=== PATIENT | male | born 1950 | race Caucasian/White ===

== ENCOUNTER 2017-04-17 19:50 | Inpatient (IN) | payer OTHER ==
[2017-04-17] MEDS ORDERED: NS 1,000 ML IV ONE (20:05)
[2017-04-17 20:53] LABS: % IMMATURE GRANULYOCYTES 0.4 % (0.0-1.1); ABSOLUTE IMMATURE GRANULOCYTES 0.02 10^3/uL (0.00-0.10); ADD DIFF? NO; ADD MORPH? NO; ADD SCAN? NO; ATYPICAL LYMPHOCYTE FLAG 0 (0-99); FRAGMENT RBC FLAG 0 (0-99); HEMOGLOBIN 16.7 g/dL (13.7-17.5); LEFT SHIFT FLG 0 (0-99); LIPEMIA HEMOLYSIS FLAG 90 (0-99); MEAN CELL HEMOGLOBIN 33.9 pg (27.9-34.1); MEAN CELL HEMOGLOBIN CONCENTR. 37.1 g/dL (32.4-36.7); MEAN CELL VOLUME 91.3 fL (81.5-99.8); MEAN PLATELET VOLUME 9.1 fL (8.7-11.7); PLATELET CLUMPS FLAG 0 (0-99); PLATELET COUNT 72 10^3/uL (150-400); RED BLOOD CELL COUNT 4.93 10^6/uL (4.40-6.38)
[2017-04-17 21:10] LABS: ALANINE AMINOTRANSFERASE 116 IU/L (21-72); ALBUMIN 3.9 g/dL (3.5-5.0); ALKALINE PHOSPHATASE 200 IU/L (38-126); ANION GAP 20 mEq/L (8-16); ASPARTATE AMINOTRANSFERASE 206 IU/L (17-59); BILIRUBIN,TOTAL 4.9 mg/dL (0.1-1.4); BILIRUBIN-CONJUGATED 3.2 mg/dL (0.0-0.5); BILIRUBIN-UNCONJUGATED 1.7 mg/dL (0.0-1.1); CALCIUM 8.5 mg/dL (8.5-10.4); CARBON DIOXIDE 20 mEq/l (22-31); CHLORIDE 98 mEq/L (97-110); CREATININE 0.6 mg/dL (0.7-1.3); GLOMERULAR FILTRATION RATE > 60; GLUCOSE 90 mg/dL (70-100); SODIUM 138 mEq/L (134-144); TOTAL PROTEIN 6.8 g/dL (6.3-8.2)
[2017-04-17] MEDS ORDERED: LORazepam 2 MG/ML INJ ONE (21:13)
[2017-04-17] MEDS ORDERED: LORazepam 2 MG/ML INJ IVP ONE ×2 (21:14→22:20)
--- NOTE | 2017-04-17 21:25 | EDPHY ---
General Time Seen by Provider: 04/17/17 20:05 - History Smoking Status: Light smoker - Objective Vital Signs: Initial Vital Signs Temperature (C) 37.1 C 04/17/17 19:55 Heart Rate 83 04/17/17 19:55 Respiratory Rate 20 04/17/17 19:55 Blood Pressure 181/90 H 04/17/17 19:55 O2 Sat (%) 95 04/17/17 19:55 O2 Delivery Mode Room Air Allergies/Adverse Reactions: Penicillins Allergy (Intermediate, Verified 04/17/17 19:54) Hives Home Medications: Medication Instructions Recorded clonIDINE [Catapres (*)] 0.05 mg PO BID 04/28/15 levOFLOXACIN [levAQUIN (*)] 750 mg PO DAILY #5 tab 04/30/15 oxyCODONE/APAP 5/325 [Percocet 1 - 2 tab PO Q6H PRN #10 tab 04/30/15 5/325 (*)] Gabapentin [Neurontin 100 MG (*)] 100 mg PO DAILY 05/02/15 Multivitamins [Multivitamin (*)] 1 each PO DAILY 05/02/15 traZODone [traZODONE 50MG (*)] 100 mg PO HS 05/02/15 Laboratory Results: Laboratory Results 04/17/17 20:34 04/17/17 04/17/17 04/17/17 20:34 20:34 20:34 WBC 4.59 10^3/uL 10^3/uL (3.80-9.50) RBC 4.93 10^6/uL 10^6/uL (4.40-6.38) Hgb 16.7 g/dL g/dL (13.7-17.5) Hct 45.0 % % (40.0-51.0) MCV 91.3 fL fL (81.5-99.8) MCH 33.9 pg pg (27.9-34.1) MCHC 37.1 g/dL H g/dL (32.4-36.7) RDW 14.0 % % (11.5-15.2) Plt Count 72 10^3/uL L 10^3/uL (150-400) MPV 9.1 fL fL (8.7-11.7) Neut % (Auto) 64.9 % % (39.3-74.2) Lymph % (Auto) 23.5 % % (15.0-45.0) [place] % (Auto) 9.6 % % (4.5-13.0) Eos % (Auto) 0.9 % % (0.6-7.6) Baso % (Auto) 0.7 % % (0.3-1.7) Nucleat RBC Rel Count 0.0 % % (0.0-0.2) Absolute Neuts (auto) 2.98 10^3/uL 10^3/uL (1.70-6.50) Absolute Lymphs (auto) 1.08 10^3/uL 10^3/uL (1.00-3.00) Absolute Monos (auto) 0.44 10^3/uL 10^3/uL (0.30-0.80) Absolute Eos (auto) 0.04 10^3/uL 10^3/uL (0.03-0.40) Absolute Basos (auto) 0.03 10^3/uL 10^3/uL (0.02-0.10) Absolute Nucleated RBC 0.00 10^3/uL 10^3/uL (0-0.01) Immature Gran % 0.4 % % (0.0-1.1) Immature Gran # 0.02 10^3/uL 10^3/uL (0.00-0.10) Sodium Pending Potassium Pending Chloride Pending Carbon Dioxide Pending Anion Gap Pending BUN Pending Creatinine Pending Estimated GFR Pending Glucose Pending Calcium Pending Total Bilirubin Pending Conjugated Bilirubin Pending Unconjugated Bilirubin Pending AST Pending ALT Pending Alkaline Phosphatase Pending Total Protein Pending Albumin Pending Lipase Pending Malaria Smear Pending Malaria Sm Path Review Pending Medications Given: Discontinued Medications Sodium Chloride (Ns) 1,000 mls @ 0 mls/hr IV EDNOW ONE; Wide Open PRN Reason: Protocol Stop: 04/17/17 20:06 Last Admin: 04/17/17 20:37 Dose: 1,000 mls Departure - Departure Referrals: Bucky Cotto DO [Primary Care Provider] - As per Instructions
--- NOTE | 2017-04-17 21:29 | EDPHY ---
H & P Stated Complaint: general weakness, no appetite, vomiting off & on x 2 months, confused Time Seen by Provider: 04/17/17 20:05 HPI/ROS: CHIEF COMPLAINT: Generalized weakness, loss of appetite, occasional vomiting HISTORY OF PRESENT ILLNESS: The patient presents the ED with several months of generalized weakness, loss of appetite and occasional vomiting. The patient is concerned that his symptoms may be related to a 7-10 day trip to [place] he made in December. The patient reportedly was on malaria medications at that point time. The patient denies any insect bites or exposures. The patient states he has not seen a primary care provider in over 1 year. The patient does endorse drinking 2-3 drinks a day. The patient denies any hematemesis, melena or hematochezia. The patient denies any complaints of fever, cough, congestion or rash. REVIEW OF SYSTEMS: A comprehensive 10 point review of systems is otherwise negative aside from elements mentioned in the history of present illness. Source: Patient Exam Limitations: No limitations - Personal History Current Tetanus Diphtheria and Acellular Pertussis (TDAP): Unsure - Medical/Surgical History Hx Asthma: No Hx Chronic Respiratory Disease: No Hx Diabetes: No Hx Cardiac Disease: No Hx Renal Disease: No Hx Cirrhosis: No Hx Alcoholism: Yes Hx HIV/AIDS: No Hx Splenectomy or Spleen Trauma: No Other PMH: HTN - Social History Smoking Status: Light smoker - Physical Exam Exam: General Appearance: Alert, no distress, slightly tremulous, alcohol on breath Eyes: Pupils equal and round no pallor or injection ENT, Mouth: Mucous membranes moist Respiratory: There are no retractions, lungs are clear to auscultation Cardiovascular: Regular rate and rhythm Gastrointestinal: Minimal epigastric tenderness to palpation Neurological: A&O, normal motor function, normal sensory exam, normal cranial nerves Skin: Warm and dry, no rashes Musculoskeletal: Neck is supple nontender Extremities: symmetrical, full range of motion Constitutional: Initial Vital Signs Temperature (C) 37.1 C 04/17/17 19:55 Heart Rate 83 04/17/17 19:55 Respiratory Rate 20 04/17/17 19:55 Blood Pressure 181/90 H 04/17/17 19:55 O2 Sat (%) 95 04/17/17 19:55 O2 Delivery Mode Room Air Allergies/Adverse Reactions: Penicillins Allergy (Intermediate, Verified 04/17/17 19:54) Hives Home Medications: Medication Instructions Recorded clonIDINE [Catapres (*)] 0.05 mg PO BID 04/28/15 levOFLOXACIN [levAQUIN (*)] 750 mg PO DAILY #5 tab 04/30/15 oxyCODONE/APAP 5/325 [Percocet 1 - 2 tab PO Q6H PRN #10 tab 04/30/15 5/325 (*)] Gabapentin [Neurontin 100 MG (*)] 100 mg PO DAILY 05/02/15 Multivitamins [Multivitamin (*)] 1 each PO DAILY 05/02/15 traZODone [traZODONE 50MG (*)] 100 mg PO HS 05/02/15 Medical Decision Making ED Course/Re-evaluation: The patient presents to the ED with fatigue, poor appetite, lethargy which is worsened over the past several months. The patient is noted to have elevated liver function test. The patient reports he drinks 2-3 drinks today but certainly seems to be exhibiting symptoms consistent with alcohol withdrawal. The patient received a total of 2 mg of IV Ativan. The patient continues to be tremulous and slightly diaphoretic on my examination. The patient did have a remote history of travel to [place]. A malaria prep has been sent in addition to a hepatitis panel. I do feel the patient will require admission to the hospital this evening for observation and further workup of his abnormal liver function test which are certainly likely to be elevated as a result of his under reported alcohol use. Consultation was made with the hospitalist service. In reviewing the patient's past medical records he has had admissions to the hospital in 2013 for alcohol withdrawal. He was also admitted in 2014 for left upper quadrant pain. He was evaluated by Gastroenterology at that point time. Consultation was made with Dr. Quevedo from the hospitalist service who will admit the patient. Differential Diagnosis: Differential diagnosis considered includes alcohol withdrawal, hepatitis, critical anemia, malaria, dehydration, metabolic abnormality, renal failure - Data Points Laboratory Results: Laboratory Results 04/17/17 20:34 04/17/17 20:34 04/17/17 04/17/17 04/17/17 20:34 20:34 20:34 WBC 4.59 10^3/uL 10^3/uL (3.80-9.50) RBC 4.93 10^6/uL 10^6/uL (4.40-6.38) Hgb 16.7 g/dL g/dL (13.7-17.5) Hct 45.0 % % (40.0-51.0) MCV 91.3 fL fL (81.5-99.8) MCH 33.9 pg pg (27.9-34.1) MCHC 37.1 g/dL H g/dL (32.4-36.7) RDW 14.0 % % (11.5-15.2) Plt Count 72 10^3/uL L 10^3/uL (150-400) MPV 9.1 fL fL (8.7-11.7) Neut % (Auto) 64.9 % % (39.3-74.2) Lymph % (Auto) 23.5 % % (15.0-45.0) [place] % (Auto) 9.6 % % (4.5-13.0) Eos % (Auto) 0.9 % % (0.6-7.6) Baso % (Auto) 0.7 % % (0.3-1.7) Nucleat RBC Rel Count 0.0 % % (0.0-0.2) Absolute Neuts (auto) 2.98 10^3/uL 10^3/uL (1.70-6.50) Absolute Lymphs (auto) 1.08 10^3/uL 10^3/uL (1.00-3.00) Absolute Monos (auto) 0.44 10^3/uL 10^3/uL (0.30-0.80) Absolute Eos (auto) 0.04 10^3/uL 10^3/uL (0.03-0.40) Absolute Basos (auto) 0.03 10^3/uL 10^3/uL (0.02-0.10) Absolute Nucleated RBC 0.00 10^3/uL 10^3/uL (0-0.01) Immature Gran % 0.4 % % (0.0-1.1) Immature Gran # 0.02 10^3/uL 10^3/uL (0.00-0.10) Sodium 138 mEq/L mEq/L (134-144) Potassium 3.0 mEq/L L mEq/L (3.5-5.2) Chloride 98 mEq/L mEq/L (97-110) Carbon Dioxide 20 mEq/l L mEq/l (22-31) Anion Gap 20 mEq/L H mEq/L (8-16) BUN 8 mg/dL mg/dL (7-23) Creatinine 0.6 mg/dL L mg/dL (0.7-1.3) Estimated GFR > 60 Glucose 90 mg/dL mg/dL (70-100) Calcium 8.5 mg/dL mg/dL (8.5-10.4) Total Bilirubin 4.9 mg/dL H mg/dL (0.1-1.4) Conjugated Bilirubin 3.2 mg/dL H mg/dL (0.0-0.5) Unconjugated Bilirubin 1.7 mg/dL H mg/dL (0.0-1.1) AST 206 IU/L H IU/L (17-59) ALT 116 IU/L H IU/L (21-72) Alkaline Phosphatase 200 IU/L H IU/L (38-126) Total Protein 6.8 g/dL g/dL (6.3-8.2) Albumin 3.9 g/dL g/dL (3.5-5.0) Lipase 61 IU/L IU/L (23-300) Malaria Smear Pending Malaria Sm Path Review Pending Medications Given: Discontinued Medications Sodium Chloride (Ns) 1,000 mls @ 0 mls/hr IV EDNOW ONE; Wide Open PRN Reason: Protocol Stop: 04/17/17 20:06 Last Admin: 04/17/17 20:37 Dose: 1,000 mls Lorazepam (Ativan Injection) 1 mg IVP EDNOW ONE Stop: 04/17/17 21:15 Last Admin: 04/17/17 21:15 Dose: 1 mg Lorazepam (Ativan Injection) 1 mg IVP EDNOW ONE Stop: 04/17/17 22:21 Last Admin: 04/17/17 22:26 Dose: 1 mg Departure - Departure Disposition: [facility] Acute Clinical Impression: LUQ abdominal pain, Alcohol withdrawal, Elevated liver function tests Condition: Fair Referrals: Bucky Cotto DO [Primary Care Provider] - As per Instructions
[2017-04-17 23:27] LABS: MALARIAL PREP NONE SEEN (NONE SEEN)
[2017-04-18] MEDS ORDERED: oxyCODONE IR 5 MG TAB PO PRN (00:43)
[2017-04-18] MEDS ORDERED: ONDANSETRON 4 MG/2 ML VIAL IVP PRN (00:43)
[2017-04-18] MEDS ORDERED: ONDANSETRON DISINTEGRATING 4 MG TAB PO PRN (00:43)
[2017-04-18] MEDS ORDERED: NS W/ 20 KCl/L 1,000 ML IV SCH (00:45)
[2017-04-18] MEDS ORDERED: traZODone 50 MG TAB PO PRN (00:49)
--- NOTE | 2017-04-18 00:57 | PDGENHP ---
History and Physical - Chief Complaint loss of appetite, abdominal discomfort - History of Present Illness 66 yo male with alcohol abuse presented to ED due to 3 days of poor appetite, weakness and abdominal discomfort. He endorses mild discomfort in epigastrium and RUQ. +nausea and vomiting. He vomited yesterday morning and also reports clear diarrhea. No hematemesis or coffee ground emesis. No BRBPR or melanotic stools. No fevers or chills. No cough, CP, or SOB. He has h/o prior hospitalizations for alcohol withdrawal, but denies h/o seizures. He admits to drinking 3-4 drinks per day, usually vodka or gin and tonic. He sleeps poorly and often wakes up in the middle of the night and has another cocktail to help him sleep. He traveled to [facility] 3 months ago and thought he possibly caught something there to explain his symptoms. In the ED, labs reveal elevated LFT's. An abdominal u/s showed hepatomegaly and hepatic steatosis, but no biliary dilatation and a normal CBD. Given his weakness and little oral intake, he is admitted to the hospital for further management. History Information - Allergies/Home Medication List Allergies/Adverse Reactions: Penicillins Allergy (Intermediate, Verified 04/17/17 19:54) Hives Home Medications: clonIDINE [Catapres (*)] 0.05 mg PO BID 04/28/15 [Last Taken 05/02/15 09:00] Gabapentin [Neurontin 100 MG (*)] 100 mg PO DAILY 05/02/15 [Last Taken 05/02/15] Multivitamins [Multivitamin (*)] 1 each PO DAILY 05/02/15 [Last Taken 04/29/15] traZODone [traZODONE 50MG (*)] 100 mg PO HS 05/02/15 [Last Taken 05/01/15] I have personally reviewed and updated: family history, medical history, social history, surgical history - Past Medical History hypertension Additional medical history: alcohol abuse, h/o alcohol withdrawal - Surgical History Reports: no pertinent surgical hx - Family History Positive for: non-pertinent - Social History Smoking Status: Light smoker Alcohol Use: Heavy Drug Use: None Additional social history: Lives independently. Review of Systems Review of Systems: ROS: 10pt was reviewed & negative except for what was stated in HPI & below Physical Exam Physical Exam: Temp Pulse Resp BP Pulse Ox 36.8 C 79 20 174/103 H 92 04/17/17 23:34 04/17/17 23:34 04/17/17 23:34 04/17/17 23:34 04/17/17 23:34 O2 (L/minute) 2.5 Constitutional: no apparent distress Eyes: PERRL, icteric sclera Ears, Nose, Mouth, Throat: moist mucous membranes Cardiovascular: regular rate and rhythym Respiratory: no respiratory distress, clear to auscultation Gastrointestinal: normoactive bowel sounds, other (soft, nd, mild TTP RUQ, no r/ r/g) Skin: warm Musculoskeletal: full muscle strength Neurologic: AAOx3 Psychiatric: interacting appropriately Lab Data & Imaging Review 04/17/17 20:34 04/17/17 20:34 WBC 4.59 10^3/uL (3.80-9.50) 04/17/17 20:34 RBC 4.93 10^6/uL (4.40-6.38) 04/17/17 20:34 Hgb 16.7 g/dL (13.7-17.5) 04/17/17 20:34 Hct 45.0 % (40.0-51.0) 04/17/17 20:34 MCV 91.3 fL (81.5-99.8) 04/17/17 20:34 MCH 33.9 pg (27.9-34.1) 04/17/17 20:34 MCHC 37.1 g/dL (32.4-36.7) H 04/17/17 20:34 RDW 14.0 % (11.5-15.2) 04/17/17 20:34 Plt Count 72 10^3/uL (150-400) L 04/17/17 20:34 MPV 9.1 fL (8.7-11.7) 04/17/17 20:34 Neut % (Auto) 64.9 % (39.3-74.2) 04/17/17 20:34 Lymph % (Auto) 23.5 % (15.0-45.0) 04/17/17 20:34 [place] % (Auto) 9.6 % (4.5-13.0) 04/17/17 20:34 Eos % (Auto) 0.9 % (0.6-7.6) 04/17/17 20:34 Baso % (Auto) 0.7 % (0.3-1.7) 04/17/17 20:34 Nucleat RBC Rel Count 0.0 % (0.0-0.2) 04/17/17 20:34 Absolute Neuts (auto) 2.98 10^3/uL (1.70-6.50) 04/17/17 20:34 Absolute Lymphs (auto) 1.08 10^3/uL (1.00-3.00) 04/17/17 20:34 Absolute Monos (auto) 0.44 10^3/uL (0.30-0.80) 04/17/17 20:34 Absolute Eos (auto) 0.04 10^3/uL (0.03-0.40) 04/17/17 20:34 Absolute Basos (auto) 0.03 10^3/uL (0.02-0.10) 04/17/17 20:34 Absolute Nucleated RBC 0.00 10^3/uL (0-0.01) 04/17/17 20:34 Immature Gran % 0.4 % (0.0-1.1) 04/17/17 20:34 Immature Gran # 0.02 10^3/uL (0.00-0.10) 04/17/17 20:34 Sodium 138 mEq/L (134-144) 04/17/17 20:34 Potassium 3.0 mEq/L (3.5-5.2) L 04/17/17 20:34 Chloride 98 mEq/L (97-110) 04/17/17 20:34 Carbon Dioxide 20 mEq/l (22-31) L 04/17/17 20:34 Anion Gap 20 mEq/L (8-16) H 04/17/17 20:34 BUN 8 mg/dL (7-23) 04/17/17 20:34 Creatinine 0.6 mg/dL (0.7-1.3) L 04/17/17 20:34 Estimated GFR > 60 04/17/17 20:34 Glucose 90 mg/dL (70-100) 04/17/17 20:34 Calcium 8.5 mg/dL (8.5-10.4) 04/17/17 20:34 Total Bilirubin 4.9 mg/dL (0.1-1.4) H 04/17/17 20:34 Conjugated Bilirubin 3.2 mg/dL (0.0-0.5) H 04/17/17 20:34 Unconjugated Bilirubin 1.7 mg/dL (0.0-1.1) H 04/17/17 20:34 AST 206 IU/L (17-59) H 04/17/17 20:34 ALT 116 IU/L (21-72) H 04/17/17 20:34 Alkaline Phosphatase 200 IU/L (38-126) H 04/17/17 20:34 Total Protein 6.8 g/dL (6.3-8.2) 04/17/17 20:34 Albumin 3.9 g/dL (3.5-5.0) 04/17/17 20:34 Lipase 61 IU/L (23-300) 04/17/17 20:34 Malaria Smear NONE SEEN (NONE SEEN) 04/17/17 20:34 Assessment & Plan Assessment: Abdominal pain with nausea/vomiting and elevated LFT's - suspect alcoholic hepatitis, AST/ALT ratio c/w etoh. Also consider biliary source, though no gb wall thickening or biliary dilation on u/s and CBD normal at 4 mm. He may have underlying alcoholic liver disease with an acute alcohol induced gastritis contributing to his nausea and vomiting. Recent travel noted. His symptoms are not consistent with malaria, though smear sent in ED and is pending. -Admit for IVF's, supportive care -hepatitis panel pending -check HIDA in am -IV PPI -check H Pylori Ab -If N/V does not improve, he may warrant GI evaluation / EGD -Trend LFT's. If on the rise, consider further imaging such as MRCP -Discussed importance of abstinence from alcohol and risk of liver failure with ongoing drinking Alcohol abuse in active withdrawal - he received 2 mg IV Ativan in the ED. -CIWA protocol, prn Ativan -Thiamine, folate, vits -CM consult for resource counseling, pt demonstrates poor insight Hypertension - likely hastened by alcohol abuse. He has a h/o htn, but hasn't seen his PCP in over a year and is not taking medications -start lisinopril -prn hydralazine Hypoxemia - on 2 LPM. No respiratory symptoms. -check CXR AGMA - mild. Suspect alcoholic ketoacidosis / starvation ketosis -hydrate and recheck Thrombocytopenia - likely BM suppression from etoh. No bleeding. Monitor. Hypokalemia - replace, follow. DVT PPLX - pharm contraindicated with low platelets, SCD's and ambulation Full code Dispo - admit to inpatient, suspect he will require >48 hrs hospitalization for ongoing management of his alcoholic hepatitis and acute withdrawal
[2017-04-18] MEDS ORDERED: FAMOTIDINE 20 MG/NACL 50 ML IV SCH (01:00)
[2017-04-18] MEDS ORDERED: hydrALAZINE 10 MG TAB PO PRN (01:21)
[2017-04-18] MEDS: POTASSIUM Cl (KCl) 100 ML IV SCH ×2 (01:51→03:21)
[2017-04-18] MEDS: traZODone 50 MG TAB PO PRN ×2 (01:52→20:24)
[2017-04-18] MEDS: LISINOPRIL 10 MG TAB PO SCH ×2 (01:52→11:06)
[2017-04-18] MEDS: THIAMINE HCL 500 MG in NS 100 ML IV SCH ×2 (01:52→16:16)
[2017-04-18 02:56] LABS: INR 1.05 (0.83-1.16); PROTIME(PATIENT) 13.6 SEC (12.0-15.0)
[2017-04-18] MEDS: LORazepam 2 MG/ML INJ IVP PRN ×4 (03:21→16:22)
[2017-04-18] MEDS: PANTOPRAZOLE SODIUM 40 MG in NS 100 ML IV SCH ×2 (03:35→14:57)
[2017-04-18] MEDS ORDERED: PROTOCOL MAGNESIUM 1 DOSE IV PRN (03:46)
[2017-04-18] MEDS ORDERED: MAGNESIUM SULF 1 GM/DEXTROSE 100 ML IV ONE (04:36)
[2017-04-18 08:00] LABS: % IMMATURE GRANULYOCYTES 0.4 % (0.0-1.1); ABSOLUTE IMMATURE GRANULOCYTES 0.02 10^3/uL (0.00-0.10); ADD DIFF? NO; ADD MORPH? NO; ADD SCAN? NO; ATYPICAL LYMPHOCYTE FLAG 0 (0-99); FRAGMENT RBC FLAG 0 (0-99); HEMATOCRIT 43.3 % (40.0-51.0); HEMOGLOBIN 16.1 g/dL (13.7-17.5); LEFT SHIFT FLG 0 (0-99); LIPEMIA HEMOLYSIS FLAG 90 (0-99); MEAN CELL HEMOGLOBIN 34.2 pg (27.9-34.1); MEAN CELL HEMOGLOBIN CONCENTR. 37.2 g/dL (32.4-36.7); MEAN CELL VOLUME 91.9 fL (81.5-99.8); MEAN PLATELET VOLUME 8.9 fL (8.7-11.7); PLATELET CLUMPS FLAG 0 (0-99); PLATELET COUNT 66 10^3/uL (150-400); RED BLOOD CELL COUNT 4.71 10^6/uL (4.40-6.38); RED CELL DISTRIBUTION WIDTH 13.9 % (11.5-15.2)
[2017-04-18 08:25] LABS: ALANINE AMINOTRANSFERASE 112 IU/L (21-72); ALBUMIN 3.8 g/dL (3.5-5.0); ALKALINE PHOSPHATASE 196 IU/L (38-126); ANION GAP 14 mEq/L (8-16); ASPARTATE AMINOTRANSFERASE 183 IU/L (17-59); BILIRUBIN,TOTAL 5.4 mg/dL (0.1-1.4); CALCIUM 8.3 mg/dL (8.5-10.4); CARBON DIOXIDE 24 mEq/l (22-31); CHLORIDE 98 mEq/L (97-110); CREATININE 0.5 mg/dL (0.7-1.3); GLOMERULAR FILTRATION RATE > 60; GLUCOSE 164 mg/dL (70-100); MAGNESIUM 1.5 mg/dL (1.6-2.3); POTASSIUM 3.1 mEq/L (3.5-5.2); SODIUM 136 mEq/L (134-144); TOTAL PROTEIN 6.6 g/dL (6.3-8.2)
[2017-04-18 08:32] LABS: BILIRUBIN-CONJUGATED 3.3 mg/dL (0.0-0.5); BILIRUBIN-UNCONJUGATED 2.1 mg/dL (0.0-1.1)
[2017-04-18] MEDS: MULTIVITAMINS 1 EACH TAB PO SCH (09:25)
[2017-04-18] MEDS: FOLIC ACID 1 MG TAB PO SCH (09:25)
--- NOTE | 2017-04-18 12:56 | ASMTCMCOM ---
CM Note CM Note Notes: 04/18/2017 Case Management Note: Met w/ pt. Completed CAGE assessment. Pt answered affirmatively to all questions. Provided resources for [facility] counseling center, outpatient behavioral health, and AA meetings as well as a list of community drug and alcohol treatment centers. Pt reports social support as only one good friend Bucky Nolan. Pt reports no contact w/family members. 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 No other case management d/c needs identified. Case Management d/c poc: Home independent w/ community resources lists for pt to access for ETOH cessation support. Case Management available if needs change. Date Signed: 04/18/2017 12:55 PM Electronically Signed By:Sameera Frazier RN
[2017-04-18 14:44] LABS: MAGNESIUM 1.5 mg/dL (1.6-2.3); POTASSIUM 3.2 mEq/L (3.5-5.2)
[2017-04-18] MEDS: POTASSIUM Cl (KCl) 40 MEQ in NS 1,000 ML IV SCH (16:15)
[2017-04-18] MEDS ORDERED: MAGNESIUM SULF 2 GM/WATER 50 ML IV ONE (16:53)
[2017-04-18] MEDS ORDERED: MELATONIN 3 MG TAB PO PRN (16:53)
[2017-04-18] MEDS ORDERED: POTASSIUM CL 20 MEQ TAB PO ONE (16:54)
--- NOTE | 2017-04-18 16:57 | HOSPPROG ---
Hospitalist Progress Note Assessment/Plan: Prolonged service in addition to the history and physical initially performed by Dr. Maddie Quevedo, direct patient care, [id number] with the patient at bedside, from 12:30 until 1:05 p.m., 35 minutes, addressing the following: -physical exam reveals tremulousness, no asterixis, alert awake oriented x2 to person and place only not to time, concentration is 7/7, heart rate is tachycardic with regular rhythm, lungs are clear to auscultation bilaterally, abdomen is soft mildly tender to deep palpation in the right upper quadrant bowel sounds are present -patient continues to demonstrate evidence of acute alcohol withdrawal and he is unsteady on his feet, with his tremulousness exacerbated and he appears like he is going to fall -counseled the patient that he is continuing to experience acute alcohol withdrawal potentially alcohol induced myopathy, recommend he continue to remain hospitalized for electrolyte management, supportive care, Ativan as needed to help him withdrawal safely -he is also experiencing alcohol induced hepatitis, but his HIDA scan was suboptimal, secondary to movement and the patient not remaining still during the gallbladder examination of the scan -that said, I have a very low index of suspicion the patient has acute cholecystitis will continue to manage him supportively -potassium magnesium persistently low, supplement at this time with ongoing normal saline and 40 mEq solution -continue on CIWA protocol -continue on lisinopril, no indication for p.r.n. antihypertensives Objective: Vital Signs Temp Pulse Resp BP Pulse Ox 36.5 C 76 18 155/96 H 90 L 04/18/17 15:16 04/18/17 15:16 04/18/17 15:16 04/18/17 15:16 04/18/17 15:16 Laboratory Results 04/18/17 07:51 04/18/17 13:51 04/17/17 04/18/17 04/19/17 05:59 05:59 05:59 Intake Total 1200 Output Total 300 675 Balance 900 -675 PT 13.6 SEC (12.0-15.0) 04/18/17 02:00 INR 1.05 (0.83-1.16) 04/18/17 02:00 ICD10 Worksheet Patient Problems: Problems Problem Status Onset Opiate withdrawal Chronic LUQ abdominal pain Acute H/O colonoscopy with polypectomy Acute Alcohol withdrawal Acute Elevated liver function tests Acute
[2017-04-18] MEDS: LORazepam 1 MG TAB PO PRN (20:24)
[2017-04-19] MEDS: POTASSIUM Cl (KCl) 40 MEQ in NS 1,000 ML IV SCH ×2 (03:39→15:04)
[2017-04-19] MEDS: LORazepam 1 MG TAB PO PRN ×4 (04:32→19:59)
[2017-04-19 05:25] LABS: ALANINE AMINOTRANSFERASE 88 IU/L (21-72); ALBUMIN 3.4 g/dL (3.5-5.0); ALKALINE PHOSPHATASE 167 IU/L (38-126); ANION GAP 12 mEq/L (8-16); ASPARTATE AMINOTRANSFERASE 132 IU/L (17-59); BILIRUBIN,TOTAL 6.1 mg/dL (0.1-1.4); CALCIUM 9.1 mg/dL (8.5-10.4); CARBON DIOXIDE 22 mEq/l (22-31); CHLORIDE 102 mEq/L (97-110); CREATININE 0.6 mg/dL (0.7-1.3); GLOMERULAR FILTRATION RATE > 60; GLUCOSE 187 mg/dL (70-100); POTASSIUM 3.3 mEq/L (3.5-5.2); SODIUM 136 mEq/L (134-144); TOTAL PROTEIN 6.5 g/dL (6.3-8.2)
[2017-04-19 05:26] LABS: % IMMATURE GRANULYOCYTES 0.5 % (0.0-1.1); ABSOLUTE IMMATURE GRANULOCYTES 0.02 10^3/uL (0.00-0.10); ADD DIFF? NO; ADD MORPH? NO; ADD SCAN? NO; ATYPICAL LYMPHOCYTE FLAG 0 (0-99); FRAGMENT RBC FLAG 0 (0-99); HEMATOCRIT 44.9 % (40.0-51.0); HEMOGLOBIN 16.3 g/dL (13.7-17.5); LEFT SHIFT FLG 0 (0-99); LIPEMIA HEMOLYSIS FLAG 90 (0-99); MEAN CELL HEMOGLOBIN CONCENTR. 36.3 g/dL (32.4-36.7); MEAN CELL VOLUME 93.5 fL (81.5-99.8); MEAN PLATELET VOLUME 10.3 fL (8.7-11.7); PLATELET CLUMPS FLAG 10 (0-99); PLATELET COUNT 59 10^3/uL (150-400)
[2017-04-19 05:31] LABS: BILIRUBIN-CONJUGATED 3.5 mg/dL (0.0-0.5); BILIRUBIN-UNCONJUGATED 2.6 mg/dL (0.0-1.1)
[2017-04-19] MEDS: MULTIVITAMINS 1 EACH TAB PO SCH (07:26)
[2017-04-19] MEDS: LISINOPRIL 10 MG TAB PO SCH (07:26)
[2017-04-19] MEDS: FOLIC ACID 1 MG TAB PO SCH (07:27)
[2017-04-19] MEDS: LORazepam 2 MG/ML INJ IVP PRN (07:43)
[2017-04-19] MEDS ORDERED: THIAMINE HCL 500 MG in NS 100 ML IV SCH (09:00)
[2017-04-19] MEDS ORDERED: LISINOPRIL 10 MG TAB PO ONE (09:12)
[2017-04-19] MEDS ORDERED: MAGNESIUM SULF 1 GM/DEXTROSE 100 ML IV ONE (09:13)
[2017-04-19] MEDS ORDERED: POTASSIUM CL 20 MEQ TAB PO ONE (09:13)
[2017-04-19] MEDS: PANTOPRAZOLE SODIUM 40 MG in NS 100 ML IV SCH (10:31)
[2017-04-19] MEDS: PANTOPRAZOLE SODIUM 40 MG TAB PO SCH (11:36)
[2017-04-19] MEDS: THIAMINE HCL 500 MG in NS 100 ML IV SCH (11:39)
[2017-04-19] MEDS: IPRATROPIUM/ALBUTEROL 3 ML DEYVIAL IH SCH ×2 (13:51→18:33)
--- NOTE | 2017-04-19 15:16 | HOSPPROG ---
Hospitalist Progress Note Assessment/Plan: Assessment: 66-year-old male presents with acute nausea and vomiting secondary to alcoholic hepatitis, complicated by acute alcohol withdrawal and reactive airway exacerbation Plan: 1. alcoholic hepatitis. Evidenced by elevated liver enzymes, evidence of poor synthetic function with thrombocytopenia, with symptoms including nausea vomiting and abdominal pain -ultrasound imaging demonstrates hepatic steatosis, no acute biliary obstruction -HIDA scan was unable to be completed secondary to patient being uncooperative -continue supportive care with pain management if needed, IV fluids if needed 2. acute alcohol withdrawal. Evidenced by tachycardia, hypertension, tremulousness, generalized weakness -persistent, patient is particularly tremulous on exam, has slow thought process , has ongoing hypertension -continue on CIWA with Ativan -continue to reassess with physical therapy 3. Hypertension. Suspect chronic, exacerbated by acute alcohol withdrawal, patient not previously taking any medications -initiated on lisinopril 10 mg, inadequate affect, increase to 20 mg this morning -continue to gauge effect, avoid p.r.n. Xanax patient is having acute hypertensive emergency 4. acute hypokalemia. Replete with IV fluids and orally Diet. Regular as tolerated Prophylaxis. High risk patient, SCDs, pharm contraindicated given thrombocytopenia Code. Full Disposition. Anticipated discharge is April 20, pending stabilization of condition outlined above Subjective: patient reports that he is somewhat unsteady on his feet Objective: Vital Signs Temp Pulse Resp BP Pulse Ox 37 C 88 18 162/102 H 91 L 04/19/17 12:00 04/19/17 12:00 04/19/17 12:00 04/19/17 12:00 04/19/17 12:00 Laboratory Results 04/19/17 04:55 04/19/17 04:55 04/18/17 04/19/17 04/20/17 05:59 05:59 05:59 Intake Total 1200 Output Total 300 825 Balance 900 -825 PT 13.6 SEC (12.0-15.0) 04/18/17 02:00 INR 1.05 (0.83-1.16) 04/18/17 02:00 - Pending Discharge Pending Discharge Within 24 Hours: Yes Pending Discharge Date: 04/20/17 Pending Discharge Time: 11:00 - Physical Exam Constitutional: no apparent distress, appears nourished, not in pain, uncomfortable Cardiovascular: regular rate and rhythym, no murmur, rub, or gallop, No irregularly irregular, No edema Respiratory: expiratory wheeze, No reduced air movement, No inspiratory crackles , No bronchial breath sounds, No respiratory distress Gastrointestinal: normoactive bowel sounds, no palpable masses, tenderness ( mild tenderness right upper quadrant), No distension Neurologic: AAOx3, sensation intact bilaterally, No asterixes ( tremulous bilateral upper extremities), No facial droop Psychiatric: thought process linear, anxious, other ( slowed verbal responsiveness), No agitated ICD10 Worksheet Patient Problems: Problems Problem Status Onset Opiate withdrawal Chronic LUQ abdominal pain Acute H/O colonoscopy with polypectomy Acute Alcohol withdrawal Acute Elevated liver function tests Acute
[2017-04-19] MEDS: traZODone 50 MG TAB PO PRN (19:59)
[2017-04-20] MEDS: LORazepam 1 MG TAB PO PRN ×4 (00:16→20:45)
[2017-04-20] MEDS: IPRATROPIUM/ALBUTEROL 3 ML DEYVIAL IH SCH ×4 (01:26→16:17)
[2017-04-20] MEDS: POTASSIUM Cl (KCl) 40 MEQ in NS 1,000 ML IV SCH ×2 (01:31→11:51)
[2017-04-20 05:33] LABS: % IMMATURE GRANULYOCYTES 0.3 % (0.0-1.1); ABSOLUTE IMMATURE GRANULOCYTES 0.01 10^3/uL (0.00-0.10); ADD DIFF? NO; ADD MORPH? NO; ADD SCAN? NO; ATYPICAL LYMPHOCYTE FLAG 0 (0-99); FRAGMENT RBC FLAG 0 (0-99); HEMATOCRIT 41.8 % (40.0-51.0); HEMOGLOBIN 15.2 g/dL (13.7-17.5); LEFT SHIFT FLG 0 (0-99); LIPEMIA HEMOLYSIS FLAG 90 (0-99); MEAN CELL HEMOGLOBIN 34.1 pg (27.9-34.1); MEAN CELL HEMOGLOBIN CONCENTR. 36.4 g/dL (32.4-36.7); MEAN CELL VOLUME 93.7 fL (81.5-99.8); MEAN PLATELET VOLUME 9.9 fL (8.7-11.7); PLATELET CLUMPS FLAG 10 (0-99); PLATELET COUNT 51 10^3/uL (150-400); RED BLOOD CELL COUNT 4.46 10^6/uL (4.40-6.38); RED CELL DISTRIBUTION WIDTH 13.8 % (11.5-15.2)
[2017-04-20 06:31] LABS: ALANINE AMINOTRANSFERASE 112 IU/L (21-72); ALBUMIN 3.3 g/dL (3.5-5.0); ALKALINE PHOSPHATASE 160 IU/L (38-126); ANION GAP 9 mEq/L (8-16); ASPARTATE AMINOTRANSFERASE 185 IU/L (17-59); BILIRUBIN,TOTAL 5.5 mg/dL (0.1-1.4); CARBON DIOXIDE 24 mEq/l (22-31); CHLORIDE 105 mEq/L (97-110); CREATININE 0.5 mg/dL (0.7-1.3); GLOMERULAR FILTRATION RATE > 60; GLUCOSE 115 mg/dL (70-100); MAGNESIUM 1.6 mg/dL (1.6-2.3); POTASSIUM 3.2 mEq/L (3.5-5.2); SODIUM 138 mEq/L (134-144); TOTAL PROTEIN 5.9 g/dL (6.3-8.2)
[2017-04-20 07:06] LABS: BILIRUBIN-CONJUGATED 3.3 mg/dL (0.0-0.5); BILIRUBIN-UNCONJUGATED 2.2 mg/dL (0.0-1.1)
[2017-04-20] MEDS: PANTOPRAZOLE SODIUM 40 MG TAB PO SCH (08:38)
[2017-04-20] MEDS: LISINOPRIL 10 MG TAB PO SCH (08:41)
[2017-04-20] MEDS: FOLIC ACID 1 MG TAB PO SCH (08:42)
[2017-04-20] MEDS: MULTIVITAMINS 1 EACH TAB PO SCH (08:43)
--- NOTE | 2017-04-20 09:08 | HOSPPROG ---
Hospitalist Progress Note Assessment/Plan: Mr Fry is a 66-year-old male presents with acute nausea and vomiting secondary to alcoholic hepatitis, complicated by acute alcohol withdrawal and reactive airway exacerbation. Today is my 1st encounter with the patient. Chart reviewed. *alcoholic hepatitis Ultrasound shows hepatic steatosis without biliary obstruction hepatitis panel is negative unable to do HIDA scan get an MRCP due to persistent elevation of LFTs and elevated bili will ask GI to get involved if MRCP is abnormal *abdominal pain due to this likely has gastritis from the above PPI unable to eat or drink much/ says he has had no appetite *thrombocytopenia from alcohol use *anion gap metabolic acidosis improved w eating and hydration * alcohol withdrawal actively withdrawing/tremulous * hypertension On lisinopril 20 mg poorly controlled will add low dose beta vel * hypokalemia electrolyte protocol *Plan: get an MRCP, if negative, will try and dc later today, add beta vel Subjective: Lon wants to leave because he is worried about his job. Feels poorly , unable to eat or drink much. Objective: Vital Signs Temp Pulse Resp BP Pulse Ox 36.9 C 89 16 184/115 H 94 04/20/17 08:18 04/20/17 08:18 04/20/17 08:18 04/20/17 08:41 04/20/17 08:18 Laboratory Results 04/20/17 05:24 04/20/17 05:24 04/19/17 04/20/17 04/21/17 05:59 05:59 05:59 Output Total 825 Balance -825 PT 13.6 SEC (12.0-15.0) 04/18/17 02:00 INR 1.05 (0.83-1.16) 04/18/17 02:00 - Physical Exam Constitutional: chronically ill appearing, unkempt Eyes: PERRL Ears, Nose, Mouth, Throat: hearing normal Cardiovascular: regular rate and rhythym Respiratory: no respiratory distress Gastrointestinal: normoactive bowel sounds, soft, non-tender abdomen, other ( large, round) Skin: other (flushed/ cheeks red) Neurologic: AAOx3 Psychiatric: anxious ICD10 Worksheet Patient Problems: Problems Problem Status Onset Alcohol withdrawal Acute Elevated liver function tests Acute LUQ abdominal pain Acute H/O colonoscopy with polypectomy Acute Opiate withdrawal Chronic
[2017-04-20] MEDS ORDERED: chlordiazePOXIDE 25 MG CAP PO PRN (11:57)
[2017-04-20] MEDS ORDERED: GADOBUTROL 10 ML VIAL IVP ONE (14:24)
[2017-04-20] MEDS: METOPROLOL TARTRATE 25 MG TAB PO SCH ×2 (15:56→20:46)
[2017-04-20] MEDS: traZODone 50 MG TAB PO PRN (20:45)
[2017-04-20 23:24] VITALS: RESP 18
[2017-04-21] MEDS: IPRATROPIUM/ALBUTEROL 3 ML DEYVIAL IH SCH ×3 (01:12→11:51)
[2017-04-21 05:36] LABS: INR 1.04 (0.83-1.16); PROTIME(PATIENT) 13.5 SEC (12.0-15.0)
[2017-04-21 05:48] LABS: ALANINE AMINOTRANSFERASE 124 IU/L (21-72); ALBUMIN 3.3 g/dL (3.5-5.0); ALKALINE PHOSPHATASE 150 IU/L (38-126); ANION GAP 11 mEq/L (8-16); ASPARTATE AMINOTRANSFERASE 142 IU/L (17-59); BILIRUBIN,TOTAL 4.3 mg/dL (0.1-1.4); CALCIUM 9.2 mg/dL (8.5-10.4); CARBON DIOXIDE 24 mEq/l (22-31); CHLORIDE 103 mEq/L (97-110); CREATININE 0.5 mg/dL (0.7-1.3); GLOMERULAR FILTRATION RATE > 60; GLUCOSE 132 mg/dL (70-100); POTASSIUM 3.2 mEq/L (3.5-5.2); SODIUM 138 mEq/L (134-144); TOTAL PROTEIN 5.9 g/dL (6.3-8.2)
[2017-04-21 05:54] LABS: BILIRUBIN-CONJUGATED 2.6 mg/dL (0.0-0.5); BILIRUBIN-UNCONJUGATED 1.7 mg/dL (0.0-1.1)
[2017-04-21] MEDS: METOPROLOL TARTRATE 25 MG TAB PO SCH (10:22)
[2017-04-21] MEDS: MULTIVITAMINS 1 EACH TAB PO SCH (10:22)
[2017-04-21] MEDS: LISINOPRIL 10 MG TAB PO SCH (10:23)
[2017-04-21] MEDS: PANTOPRAZOLE SODIUM 40 MG TAB PO SCH (10:23)
[2017-04-21] MEDS: FOLIC ACID 1 MG TAB PO SCH (10:23)
[2017-04-21] MEDS: LORazepam 1 MG TAB PO PRN (10:25)
[2017-04-21 11:38] VITALS: BP 140/88; PULSE 62; TEMP 99; O2SAT 94
--- NOTE | 2017-04-21 14:10 | GDS ---
[f rep st] DISCHARGE SUMMARY DISCHARGE DIAGNOSES: 1. Alcoholic hepatitis. 2. Abdominal pain secondary to alcoholic hepatitis. 3. Thrombocytopenia secondary to alcohol abuse. 4. Anion gap metabolic acidosis. 5. Acute alcohol withdrawal. 6. Hypertension. 7. Hypokalemia. STUDIES AND PROCEDURES DONE: 1. Abdominal ultrasound. 2. HIDA scan. 3. Abdominal MRI. PHYSICAL EXAMINATION: GENERAL: The patient is alert. VITAL SIGNS: Afebrile at 37.2, pulse is 62, respiratory rate is 18, blood pressure is 140/88, he is saturating 94% on room air. I have seen and evaluated the patient on the day of discharge. HOSPITAL COURSE: The patient is a 66-year-old male who presented to the emergency room with complain ts of nausea and vomiting. He was evaluated and diagnosed with: 1. Alcoholic hepatitis. During this hospitalization, HIDA scan, as well as ultrasound and MRCP were performed. No biliary obstruction or other abnormalities were identified other than a cirrhotic brianda er. His laboratory values are improving mildly. 2. Abdominal pain. He has no further abdominal pain. He is tolerating a regular diet. He will con tinue PPI in the outpatient setting as recommended. 3. Thrombocytopenia. This is secondary to excessive alcohol use and is stable at the time of dispos ition. 4. Anion gap metabolic acidosis. This has improved with his oral intake and hydration. 5. Acute alcohol withdrawal. The patient is no longer currently withdrawing. He has received resou rces and alcoholic cessation information. 6. Hypertension. This is mildly elevated at the time of disposition and have recommended to follow with his primary care physician. 7. Hypokalemia. He has received replacement. 8. Disposition. The patient will be discharged home independently. Again, I have reviewed his care with the bilingual patient support caseworker and the patient. Resources have been provided at the time of disposition. FOLLOWUP: With Bucky Cotto, his primary care physician. DISCHARGE MEDICATIONS: Please refer to EMR form. I spent greater than 35 minutes in the care, coordination, and management of this patient's discharge . /[id number]/MODL
--- NOTE | 2017-04-21 15:03 | ASDISCHSUM ---
Discharge Information Plan Status:Home with No Needs Medically Cleared to Leave: Discharge Date:04/21/2017 01:30 PM CM D/C Disposition:Home, Routine, Self-Care ADT D/C Disposition:Home, Routine, Self-Care Projected Discharge Date:04/21/2017 01:30 PM Transportation at D/C: Discharge Delay Reason: Follow-Up Date:04/21/2017 01:30 PM Discharge Slot: Final Diagnosis: Placement Information Patient Contact Information Contact Name:SHAI Relationship:Sister Address: Work Phone: City: [facility] Phone: State/[facility] Code: Email: Financial Information Financial Class:Medicare Advantage Plans Primary Plan Desc:[employer] GOLD MEDICARE Primary Plan Number:[id number] Secondary Plan Desc: Secondary Plan Number: Assessment Information [facility] CM Progress Note CM Note CM Note Notes: 04/18/2017 Case Management Note: Met w/ pt. Completed CAGE assessment. Pt answered affirmatively to all questions. Provided resources for [facility] counseling center, outpatient behavioral health, and AA meetings as well as a list of community drug and alcohol treatment centers. Pt reports social support as only one good friend Bucky Nolan. Pt reports no contact w/family members. Pt works at [employer]. No other case management d/c needs identified. Case Management d/c poc: Home independent w/ community resources lists for pt to access for ETOH cessation support. Case Management available if needs change. Date Signed: 04/18/2017 12:55 PM Electronically Signed By:Sameera Frazier RN Intervention Information Intervention Type:*IM-Signed Date of Service:04/21/2017 12:02 PM Patient Type:Inpatient Staff Member:Daylin Oliver Hours: Discipline: Severity: Comment:
== END 2017-04-21 13:30 | disposition home or self-care (01) | DRG 433 ==
LOC: OBSVTOIN 22:36 → F2W 23:24 → F3E 04-18 17:09
PROVIDERS: ADMIT Hospitalist; ATTEND Hospitalist
DX: K70.10 Alcoholic hepatitis without ascites (principal); E87.2 Acidosis; F10.239 Alcohol dependence with withdrawal, unspecified; D69.59 Other secondary thrombocytopenia; I10 Essential (primary) hypertension; E87.6 Hypokalemia; Z72.0 Tobacco use
CPT/HCPCS: 96374; 97161-GP; A9537; A9585; G0472; J2060; J2405; J3411; J3475

== ENCOUNTER 2017-07-30 10:59 | Emergency (ER) | payer OTHER ==
--- NOTE | 2017-07-30 11:34 | EDPHY ---
H & P Time Seen by Provider: 07/30/17 11:17 HPI/ROS: CHIEF COMPLAINT: Near syncope and facial trauma last night HISTORY OF PRESENT ILLNESS: 67-year-old man drinks alcohol regularly and yesterday morning got up off the couch quickly got lightheaded and tripped on the rug and hit his right side of his face on a metal trash can. Presents with a black eye on the right side and some pains face but no double vision no headache or neck pain. No chest pain or shortness of breath. His last drink was last night. He is easily interested in quitting alcohol but "cutting down. " REVIEW OF SYSTEMS: Eye: no change in vision or double vision ENT: no sore throat Cardiac: No chest pain Pulmonary: no cough or SOB Abdomen: no vomiting, diarrhea, abdominal pain Musculoskeletal: no back pain or neck pain Skin: Bruising around the right eye Neuro: no headache Constitutional: no fever : no urinary symptoms A comprehensive 10 point review of systems is otherwise negative aside from elements mentioned in the history of present illness. PAST MEDICAL HISTORY: Hypertension, alcohol withdrawal, multiple orthopedic, kidney stone Social history: Does smoker and alcohol use General Appearance: Alert and conversant, cooperative. Eyes: No scleral icterus. Extraocular motion intact, no hyphema. Patient says his vision is normal. Ecchymosis and swelling on the right upper and lower eyelids. From facial tenderness around the right orbit. ENT, Mouth: Normal mucous membranes. Normal tympanic membranes, no hemotympanum. Respiratory: Normal respiratory effort, breath sounds equal, lungs are clear to auscultation. Cardiovascular: Regular rate and rhythm. Gastrointestinal: Abdomen is soft and non tender. Neurological: Alert, face symmetric, normal motor and sensory in extremities. Not tremulous. Ambulatory, not ataxic. Speech fluent. Skin: Warm and dry, no rashes. Musculoskeletal: No peripheral edema. Psychiatric: Not agitated. Emergency Department course/MDM: CT head and face, cervical spine cleared clinically, EKG and labs. 1324: Results discussed, patient ambulatory, not ataxic. Offered detox and he refuses. Did not actually have syncope, I think dysrhythmia or hypoglycemia or seizure unlikely. Does not have evidence of skull fracture or intracranial hemorrhage. Smoking Status: Current every day smoker Constitutional: Initial Vital Signs Temperature (C) 36.6 C 07/30/17 11:00 Heart Rate 75 07/30/17 11:00 Respiratory Rate 18 07/30/17 11:00 Blood Pressure 141/76 H 07/30/17 11:00 O2 Sat (%) 94 07/30/17 11:00 O2 Delivery Mode Room Air Allergies/Adverse Reactions: Penicillins Allergy (Intermediate, Verified 07/30/17 11:00) Hives Home Medications: Medication Instructions Recorded Melatonin [Melatonin 3 MG (*)] 3 mg PO HS PRN 04/18/17 Medical Decision Making - Diagnostics EKG Interpretation: 12-lead EKG interpreted by me; official reading is in trace master. My interpretation is sinus rhythm rate 96 with left atrial abnormality. Imaging Results: Imaging Impressions Face CT 07/30/17 11:32 Impression: 1. Negative for acute intracranial posttraumatic sequela. 2. Atrophy and presumed small vessel disease similar to the [address] of the Facial Bones (Without Contrast) Clinical Indications: Pain following trauma. Technique: Noncontrast axial images were obtained through the facial bones at 1.25-mm thickness. Sagittal and coronal reformations were performed. Dose reduction techniques were utilized. Findings: Soft tissue swelling is noted about the right orbit. Orbital contents are normal. The orbital floor is intact. A fracture is not identified. There has been near complete resolution of left maxillary sinus opacification. The nasal septum is midline. Impression: 1. Facial bones are negative for acute posttraumatic sequela. 2. See above report for additional findings. Results called and discussed with Dr. Chance Zhao on July 30, [address] 07/30/17 11:32 Impression: 1. Negative for acute intracranial posttraumatic sequela. 2. Atrophy and presumed small vessel disease similar to the [address] of the Facial Bones (Without Contrast) Clinical Indications: Pain following trauma. Technique: Noncontrast axial images were obtained through the facial bones at 1.25-mm thickness. Sagittal and coronal reformations were performed. Dose reduction techniques were utilized. Findings: Soft tissue swelling is noted about the right orbit. Orbital contents are normal. The orbital floor is intact. A fracture is not identified. There has been near complete resolution of left maxillary sinus opacification. The nasal septum is midline. Impression: 1. Facial bones are negative for acute posttraumatic sequela. 2. See above report for additional findings. Results called and discussed with Dr. Chance Zhao on July 30, 2017 at 1259 hours. Differential Diagnosis: Differential diagnosis considered for head injury including but not limited to concussion, skull fracture, intraparenchymal contusion, subarachnoid, subdural and epidural hematoma. - Data Points Laboratory Results: Laboratory Results 07/30/17 12:24 07/30/17 11:54 07/30/17 07/30/17 12:24 11:54 WBC 3.83 10^3/uL 10^3/uL (3.80-9.50) RBC 3.80 10^6/uL L 10^6/uL (4.40-6.38) Hgb 13.4 g/dL L g/dL (13.7-17.5) Hct 35.6 % L % (40.0-51.0) MCV 93.7 fL fL (81.5-99.8) MCH 35.3 pg H pg (27.9-34.1) MCHC 37.6 g/dL H g/dL (32.4-36.7) RDW 13.9 % % (11.5-15.2) Plt Count 93 10^3/uL L 10^3/uL (150-400) MPV 9.7 fL fL (8.7-11.7) Neut % (Auto) 65.8 % % (39.3-74.2) Lymph % (Auto) 18.3 % % (15.0-45.0) Story % (Auto) 14.1 % H % (4.5-13.0) Eos % (Auto) 0.5 % L % (0.6-7.6) Baso % (Auto) 0.8 % % (0.3-1.7) Nucleat RBC Rel Count 0.0 % % (0.0-0.2) Absolute Neuts (auto) 2.52 10^3/uL 10^3/uL (1.70-6.50) Absolute Lymphs (auto) 0.70 10^3/uL L 10^3/uL (1.00-3.00) Absolute Monos (auto) 0.54 10^3/uL 10^3/uL (0.30-0.80) Absolute Eos (auto) 0.02 10^3/uL L 10^3/uL (0.03-0.40) Absolute Basos (auto) 0.03 10^3/uL 10^3/uL (0.02-0.10) Absolute Nucleated RBC 0.00 10^3/uL 10^3/uL (0-0.01) Immature Gran % 0.5 % % (0.0-1.1) Seg Neutrophils % 44 % % Band Neutrophils % 21 % % Lymphocytes % 27 % % Monocytes % 6 % % Eosinophils % 2 % % Immature Gran # 0.02 10^3/uL 10^3/uL (0.00-0.10) Absolute Seg Neuts 1.69 10^/uL L 10^/uL (1.70-6.50) Absolute Band Neuts 0.80 10^3/uL H 10^3/uL (0.00-0.70) Absolute Lymphocytes 1.03 10^3/uL 10^3/uL (1.00-3.00) Absolute Monocytes 0.23 10^3/uL L 10^3/uL (0.30-0.80) Absolute Eosinophils 0.08 10^3/uL 10^3/uL (0.03-0.40) Toxic Granulation PRESENT H Platelet Estimate DECREASED L (ADEQ) Oval Macrocytes 1+ H Sodium 135 mEq/L mEq/L (134-144) Potassium 3.1 mEq/L L mEq/L (3.3-5.0) Chloride 93 mEq/L L mEq/L (97-110) Carbon Dioxide 23 mEq/l mEq/l (22-31) Anion Gap 19 mEq/L H mEq/L (8-16) BUN 11 mg/dL mg/dL (7-23) Creatinine 0.5 mg/dL L mg/dL (0.7-1.3) Estimated GFR > 60 Glucose 120 mg/dL H mg/dL (70-100) Calcium 8.6 mg/dL mg/dL (8.5-10.4) Troponin I 0.027 ng/mL ng/mL (0.000-0.034) Specimen Hemolysis 149 Departure - Departure Disposition: Home, Routine, Self-Care Clinical Impression: Near syncope Contusion of face Qualifiers: Encounter type: sequela Qualified Code(s): S00.83XS - Contusion of other part of head, sequela Condition: Good Instructions: Facial Contusion (ED) Referrals: Bucky Cotto DO [Primary Care Provider] - As per Instructions
--- NOTE | 2017-07-30 11:42 | CPEKG ---
Heart Rate: 96 RR Interval: 625 P-R Interval: 180 QRSD Interval: 88 QT Interval: 316 QTC Interval: 400 P [place]: 50 QRS [place]: 20 T Wave [place]: 247 EKG Severity - BORDERLINE ECG - EKG Impression: SINUS RHYTHM EKG Impression: PROBABLE LEFT ATRIAL ABNORMALITY Electronically Signed By: Chance Zhao 30-Jul-2017 13:00:58
[2017-07-30 11:51] VITALS: RESP 20; TEMP 97.5
[2017-07-30 13:06] LABS: PLATELET COUNT 93 10^3/uL (150-400)
[2017-07-30 13:35] VITALS: BP 109/74; PULSE 96; O2SAT 96
== END 2017-07-30 13:34 | disposition home or self-care (01) ==
DX: S00.83XA Contusion of other part of head, initial encounter (principal); R55 Syncope and collapse; I10 Essential (primary) hypertension; F17.200 Nicotine dependence, unspecified, uncomplicated; W01.198A Fall on same level from slipping, tripping and stumbling with subsequent striking against other object, initial encounter

== ENCOUNTER 2017-09-18 13:38 | Emergency (ER) | payer OTHER ==
[2017-09-18 13:50] VITALS: BP 152/84; PULSE 88; RESP 18; TEMP 98.1; O2SAT 92
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
== END 2017-09-18 14:19 | disposition home or self-care (01) ==
LOC: EDUNIT#
DX: S00.01XA Abrasion of scalp, initial encounter (principal); K70.9 Alcoholic liver disease, unspecified; I10 Essential (primary) hypertension; F17.200 Nicotine dependence, unspecified, uncomplicated; V43.52XA Car driver injured in collision with other type car in traffic accident, initial encounter; Y92.481 Parking lot as the place of occurrence of the external cause; Y99.8 Other external cause status; Y93.89 Activity, other specified

== ENCOUNTER 2017-09-19 01:33 | Inpatient (IN) | payer OTHER ==
[2017-09-19] MEDS ORDERED: ONDANSETRON 4 MG/2 ML VIAL ONE (01:43)
[2017-09-19] MEDS ORDERED: LORazepam 2 MG/ML INJ IVP ONE (01:49)
[2017-09-19] MEDS ORDERED: ONDANSETRON 4 MG/2 ML VIAL IVP ONE (01:49)
[2017-09-19] MEDS ORDERED: NS 2,000 ML IV ONE (01:49)
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
[2017-09-19 02:22] LABS: PLATELET COUNT 99 10^3/uL (150-400)
[2017-09-19 02:34] LABS: INR 1.17 (0.83-1.16); PROTIME(PATIENT) 15.1 SEC (12.0-15.0)
[2017-09-19] MEDS ORDERED: POTASSIUM Cl (KCl) 100 ML IV ONE (02:48)
--- NOTE | 2017-09-19 03:04 | CPEKG ---
Heart Rate: 85 RR Interval: 706 P-R Interval: 164 QRSD Interval: 86 QT Interval: 364 QTC Interval: 433 P [place]: 12 QRS [place]: -15 T Wave [place]: 189 EKG Severity - ABNORMAL ECG - EKG Impression: SINUS RHYTHM EKG Impression: MULTIFORM VENTRICULAR PREMATURE COMPLEXES EKG Impression: PROBABLE LEFT ATRIAL ABNORMALITY EKG Impression: BORDERLINE LEFT AXIS DEVIATION EKG Impression: flattened T-waves Electronically Signed By: Kamran Monzon 19-Sep-2017 03:06:21
[2017-09-19] MEDS ORDERED: POTASSIUM CL 20 MEQ TAB PO ONE (03:09)
[2017-09-19] MEDS ORDERED: POTASSIUM CL 20 MEQ/15 ML UDCUP ONE (03:09)
[2017-09-19] MEDS ORDERED: POTASSIUM CL 20 MEQ/15 ML UDCUP PO ONE ×2 (03:16→07:45)
[2017-09-19] MEDS ORDERED: POTASSIUM Cl (KCl) 10 MEQ in NS 100 ML IV ONE (03:30)
[2017-09-19] MEDS ORDERED: ONDANSETRON 4 MG/2 ML VIAL IVP PRN (03:37)
[2017-09-19] MEDS ORDERED: PROTOCOL POTASSIUM 1 DOSE MISC PRN (03:51)
[2017-09-19] MEDS ORDERED: PROTOCOL MAGNESIUM 1 DOSE IV PRN (03:51)
[2017-09-19] MEDS ORDERED: PROTOCOL CALCIUM 1 DOSE IV PRN (03:51)
[2017-09-19] MEDS ORDERED: PROTOCOL K PHOSPHATE 1 DOSE IV PRN (03:51)
[2017-09-19] MEDS: THIAMINE HCL 500 MG in NS 500 ML IV SCH ×2 (05:20→09:15)
[2017-09-19] MEDS: LORazepam 2 MG/ML INJ IVP PRN ×5 (05:20→20:33)
[2017-09-19] MEDS ORDERED: CALCIUM GLUCONATE 50 ML IV ONE (07:35)
[2017-09-19] MEDS ORDERED: MAGNESIUM SULF 1 GM/DEXTROSE 100 ML IV ONE (07:35)
[2017-09-19] MEDS ORDERED: POTASSIUM Cl (KCl) 100 ML IV SCH (07:45)
[2017-09-19] MEDS ORDERED: CALCIUM GLUCONATE 1 GM in D5W 50 ML IV ONE (08:00)
[2017-09-19] MEDS: chlordiazePOXIDE 25 MG CAP PO SCH ×3 (08:04→22:59)
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
--- NOTE | 2017-09-19 10:37 | WOCRNPDOC ---
WOCRN Advanced Assessment Note - Skin Integrity Problem, Advanced Assess Left Medial Ankle Dressing Type: Open to Air Exudate Amount: None Ricky Wound Tissue: Erythema Wound Bed Color: Brown Wound Bed Constitution: Scab Wound Edges: Attached Site Odor: None Site Measurement - Head-to-Toe Length X Width X Depth (cm): 0.5x1.4xscab Skin Integrity Problem Comment: Ricky wound angry erythema to 3 cm ricky wound. Will add antimicrobial gel coverage to remove scab and round again later this week.
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
[2017-09-19] MEDS: ENOXAPARIN 40 MG/0.4 ML SYR SC SCH (12:33)
[2017-09-19] MEDS: POTASSIUM Cl (KCl) 10 MEQ in NS 100 ML IV SCH ×4 (15:08→19:13)
--- NOTE | 2017-09-19 18:25 | HOSPPROG ---
Hospitalist Progress Note Assessment/Plan: # Acute alcohol withdrawal- tremulous and disoriented on exam- oxygen saturations 95%n 2L Telemetry( personally reviewed and iterpreted) sinus in 90's - cont aggressive CIWA - cont IV thiamine # severe alcohol related liver failure - bilirubin 18 at presentation - cont supportive care and monitoring - review previous imaging # acute hepatic encephalopathy- pt with asterixis #proph -lovenox # diet - if cleared by ST # dispo- > 2MN as critically ill requiring IV meds for wd I have discussed the case with Dr Russ will step up CIWA for better wd treatment Subjective: denies pain Objective: Vital Signs Temp Pulse Resp BP Pulse Ox 36.3 C 85 22 H 135/73 H 98 09/19/17 12:05 09/19/17 16:00 09/19/17 16:00 09/19/17 16:00 09/19/17 16:00 Laboratory Results 09/19/17 12:40 09/18/17 09/19/17 09/20/17 05:59 05:59 05:59 Intake Total 1999 1600 Balance 1999 1600 PT 15.1 SEC (12.0-15.0) H 09/19/17 01:45 INR 1.17 (0.83-1.16) H 09/19/17 01:45 - Physical Exam Constitutional: chronically ill appearing Eyes: anicteric sclera Cardiovascular: regular rate and rhythym Respiratory: no respiratory distress Gastrointestinal: normoactive bowel sounds Genitourinary: no bladder fullness Skin: warm Musculoskeletal: No asymmetric calves Neurologic: No AAOx3 Psychiatric: encephalopathic Lymph, Heme, Immunologic: no cervical LAD ICD10 Worksheet Patient Problems: Problems Problem Status Onset Alcohol withdrawal Acute Cirrhosis of liver Acute Hypokalemia Acute Elevated liver function tests Acute H/O colonoscopy with polypectomy Acute LUQ abdominal pain Acute Opiate withdrawal Chronic
[2017-09-20] MEDS: LORazepam 2 MG/ML INJ IVP PRN ×4 (00:28→13:13)
[2017-09-20] MEDS: POTASSIUM Cl (KCl) 10 MEQ in NS 100 ML IV SCH ×8 (02:23→22:52)
[2017-09-20] MEDS ORDERED: CALCIUM GLUCONATE 50 ML IV ONE (07:22)
[2017-09-20] MEDS ORDERED: MAGNESIUM SULF 1 GM/DEXTROSE 100 ML IV ONE (07:22)
[2017-09-20] MEDS ORDERED: POTASSIUM Cl (KCl) 100 ML IV SCH (07:30)
[2017-09-20] MEDS ORDERED: CALCIUM GLUCONATE 1 GM in D5W 50 ML IV ONE (08:00)
[2017-09-20] MEDS: THIAMINE HCL 500 MG in NS 500 ML IV SCH (09:42)
[2017-09-20] MEDS: chlordiazePOXIDE 25 MG CAP PO SCH ×3 (09:48→21:39)
[2017-09-20] MEDS: ENOXAPARIN 40 MG/0.4 ML SYR SC SCH (10:20)
[2017-09-20] MEDS ORDERED: K PHOS 10 MMOL in NS 250 ML IV ONE (12:00)
--- NOTE | 2017-09-20 15:18 | ASMTCMCOM ---
CM Note CM Note Notes: Patient visited by a friend, Jovi today. Patient confused. Jovi reported that patient drinks 1 lit of ETOH/day and not interested in quitting. Jovi [phone] offered to be patient's Med Proxy if needed. CM to follow. Date Signed: 09/20/2017 03:17 PM Electronically Signed By:Bronwyn Beach LCSW
--- NOTE | 2017-09-20 15:50 | HOSPPROG ---
Hospitalist Progress Note Assessment/Plan: # Acute alcohol withdrawal- tremulous and remain disoriented on exam- oxygen saturations 98% on 2L Telemetry( personally reviewed and interpreted) sinus in 80's - cont aggressive CIWA - increase Librium to 50 three times daily - cont IV thiamine # severe alcohol related liver failure - bilirubin 18 at presentation-> 16 overnight - cont supportive care and monitoring - review previous imaging # acute hepatic encephalopathy- pt with persisted asterixis #proph -lovenox # diet - if cleared by ST # dispo- > 2MN as critically ill requiring IV meds for wd I have discussed the case with Dr Russ will increase Librium to decrease amount of IV Ativan required for withdrawal control consider alcohol as patient has no expectation of quitting Subjective: no pain Objective: Vital Signs Temp Pulse Resp BP Pulse Ox 37.1 C 69 22 H 96/57 L 98 09/20/17 11:49 09/20/17 11:49 09/20/17 11:49 09/20/17 11:49 09/20/17 11:49 PT 15.1 SEC (12.0-15.0) H 09/19/17 01:45 INR 1.17 (0.83-1.16) H 09/19/17 01:45 - Physical Exam Constitutional: chronically ill appearing Eyes: icteric sclera Ears, Nose, Mouth, Throat: dry mucous membranes Cardiovascular: regular rate and rhythym Respiratory: no respiratory distress Gastrointestinal: normoactive bowel sounds Genitourinary: no bladder fullness Skin: warm Musculoskeletal: No asymmetric calves Neurologic: No AAOx3 Psychiatric: encephalopathic Lymph, Heme, Immunologic: no cervical LAD ICD10 Worksheet Patient Problems: Problems Problem Status Onset Alcohol withdrawal Acute Cirrhosis of liver Acute Hypokalemia Acute Elevated liver function tests Acute H/O colonoscopy with polypectomy Acute LUQ abdominal pain Acute Opiate withdrawal Chronic
[2017-09-20] MEDS ORDERED: POTASSIUM Cl (KCl) 10 MEQ in NS 100 ML IV SCH (16:45)
[2017-09-20] MEDS ORDERED: POTASSIUM CL 20 MEQ/15 ML UDCUP PO ONE (17:30)
[2017-09-20] MEDS ORDERED: VODKA 50 ML BOTTLE PO SCH (18:00)
[2017-09-21] MEDS: LORazepam 2 MG/ML INJ IVP PRN ×2 (00:39→08:36)
[2017-09-21] MEDS: POTASSIUM Cl (KCl) 10 MEQ in NS 100 ML IV SCH ×4 (00:50→23:05)
[2017-09-21] MEDS: ENOXAPARIN 40 MG/0.4 ML SYR SC SCH (07:30)
[2017-09-21] MEDS ORDERED: POTASSIUM Cl (KCl) 100 ML IV SCH ×2 (07:30→13:30)
[2017-09-21] MEDS ORDERED: MAGNESIUM SULF 1 GM/DEXTROSE 100 ML IV ONE (07:30)
[2017-09-21] MEDS: chlordiazePOXIDE 25 MG CAP PO SCH ×3 (07:58→22:14)
[2017-09-21] MEDS ORDERED: THIAMINE HCL 100 MG TAB PO SCH (09:00)
[2017-09-21] MEDS ORDERED: K PHOS 10 MMOL in D5W 250 ML IV ONE (12:00)
--- NOTE | 2017-09-21 12:07 | ASMTCMCOM ---
CM Note CM Note Notes: I called and spoke with patient's sister Ghada Loja ([phone]). She [place] and that patient has become distant from most family besides her. Ghada said that patient has a long history of addiction, although it used to be with drugs, "really terrible drugs." She feels that he's traded drugs for alcohol now. She says he has been in rehab for substance abuse, most recently in [place] a few years ago for opioid addiction. 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 She expressed the very common sentiment of many family members of addicts that she wishes she could do more/had done more for patient and that she also feels there is nothing she can do. She did say she would act as MDPOA if and when Lon appointed her. She wants to talk to him when he clears mentally. She also wondering about discharge planning, and I explained that we would need to talk to patient about whether or not he wants to quit drinking. I also mentioned that he may not be physically well enough to return home. Case Managment will follow for discharge planning. Patient is still disoriented, tremulous, and confused. I will put Ghada's name and number in his room so that we can be in touch with updates. Date Signed: 09/21/2017 12:06 PM Electronically Signed By:Char Duggan RN
[2017-09-21] MEDS ORDERED: POTASSIUM CL 20 MEQ TAB PO ONE (14:15)
--- NOTE | 2017-09-21 14:33 | WOCRNPDOC ---
WOCRN Advanced Assessment Note - Skin Integrity Problem, Advanced Assess Left Medial Ankle Dressing Type: Allevyn Life Dressing Description: Clean/Dry, Intact Exudate Amount: None Integumentary Issue Intervention: Visualized Under Dressing Pretty Wound Tissue: Erythema (minimal) Pretty Wound Swelling: None Wound Bed Color: Yellow Wound Bed Constitution: Adhered Slough Skin Integrity Problem Comment: Pretty wound appearance improved and less erythematic with the removal of the eschar/dried wound covering. Continue current plan. Wound care will round again next week.
--- NOTE | 2017-09-21 15:46 | HOSPPROG ---
Hospitalist Progress Note Assessment/Plan: # Acute alcohol withdrawal- remains tremulous and disoriented on exam- oxygen saturations 95% on RA Telemetry (personally reviewed and interpreted) sinus in 80's - cont aggressive CIWA - cont Librium to 50 three times daily - cont po thiamine - adding scheduled alcohol in attempt to decrease IV Ativan requirements # severe alcohol related liver failure - bilirubin 18 at presentation-> 16 this am - cont supportive care and monitoring - review previous imaging # acute hepatic encephalopathy- pt with persistent asterixis #proph -lovenox # diet - swallowing pills not mentally clear enough for normal p.o. Intake # dispo- > 2MN as critically ill requiring IV meds for wd I have discussed the case with RN- will add to alcohol to attempt decreasing CIWA requirements Subjective: Denies pain Objective: Vital Signs Temp Pulse Resp BP Pulse Ox 36.4 C 89 20 124/73 H 95 09/21/17 15:40 09/21/17 15:40 09/21/17 15:40 09/21/17 15:40 09/21/17 15:40 Laboratory Results 09/21/17 12:25 09/20/17 09/21/17 09/22/17 05:59 05:59 05:59 Intake Total 350 Output Total 825 Balance -475 PT 15.1 SEC (12.0-15.0) H 09/19/17 01:45 INR 1.17 (0.83-1.16) H 09/19/17 01:45 - Physical Exam Constitutional: chronically ill appearing Eyes: icteric sclera Ears, Nose, Mouth, Throat: dry mucous membranes Cardiovascular: regular rate and rhythym Respiratory: no respiratory distress Gastrointestinal: normoactive bowel sounds Genitourinary: no bladder fullness Skin: other (Jaundice) Musculoskeletal: No asymmetric calves Neurologic: asterixes, No AAOx3 Psychiatric: encephalopathic Lymph, Heme, Immunologic: no cervical LAD ICD10 Worksheet Patient Problems: Problems Problem Status Onset Alcohol withdrawal Acute Cirrhosis of liver Acute Hypokalemia Acute Elevated liver function tests Acute H/O colonoscopy with polypectomy Acute LUQ abdominal pain Acute Opiate withdrawal Chronic
[2017-09-21] MEDS: VODKA 50 ML BOTTLE PO SCH ×2 (17:27→22:14)
[2017-09-22] MEDS: POTASSIUM Cl (KCl) 10 MEQ in NS 100 ML IV SCH ×4 (00:04→17:00)
[2017-09-22] MEDS: chlordiazePOXIDE 25 MG CAP PO SCH ×3 (09:28→20:15)
[2017-09-22] MEDS: ENOXAPARIN 40 MG/0.4 ML SYR SC SCH (09:47)
[2017-09-22] MEDS: VODKA 50 ML BOTTLE PO SCH (09:56)
[2017-09-22] MEDS ORDERED: MAGNESIUM SULF 1 GM/DEXTROSE 100 ML IV ONE (11:43)
[2017-09-22] MEDS ORDERED: CALCIUM GLUCONATE 50 ML IV ONE (11:43)
[2017-09-22] MEDS ORDERED: POTASSIUM Cl (KCl) 100 ML IV SCH (11:45)
[2017-09-22] MEDS ORDERED: CALCIUM GLUCONATE 1 GM in D5W 50 ML IV ONE (12:00)
[2017-09-22] MEDS ORDERED: PROTOCOL POTASSIUM 1 DOSE MISC PRN (12:14)
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
--- NOTE | 2017-09-22 14:26 | HOSPPROG ---
Hospitalist Progress Note Assessment/Plan: # Acute alcohol withdrawal- improved today patient appears to have baseline tremor but is oriented on exam to place- oxygen saturations 97% on 2L Telemetry (personally reviewed and interpreted) sinus in 70-80's - cont CIWA -decrease Librium to 25 TID - cont po thiamine - continue PT OT-patient will clearly need placement will ask the social media campaign manager to begin investigating # severe alcohol related liver failure - bilirubin 18 at presentation-> remain 16 this am - cont supportive care and monitoring # acute hepatic encephalopathy- improved today # proph -lovenox # diet - swallowing pills with applesauce speech therapy to work with patient today and advance diet as safe # dispo- > 2MN as critically ill requiring IV meds for wd I have discussed the case with Dr. Russ-patient nearing his baseline will decrease Librium and start working on placement Subjective: Denies pain Objective: Vital Signs Temp Pulse Resp BP Pulse Ox 37.4 C 87 29 H 120/68 97 09/22/17 11:47 09/22/17 11:47 09/22/17 11:47 09/22/17 11:47 09/22/17 11:47 Laboratory Results 09/22/17 05:05 09/21/17 09/22/17 09/23/17 05:59 05:59 05:59 Intake Total 350 1576 Output Total 825 675 Balance -475 901 PT 15.1 SEC (12.0-15.0) H 09/19/17 01:45 INR 1.17 (0.83-1.16) H 09/19/17 01:45 - Physical Exam Constitutional: chronically ill appearing Eyes: icteric sclera Ears, Nose, Mouth, Throat: dry mucous membranes Cardiovascular: regular rate and rhythym Respiratory: no respiratory distress Gastrointestinal: normoactive bowel sounds Genitourinary: no bladder fullness Skin: warm Musculoskeletal: No asymmetric calves Neurologic: No AAOx3 Psychiatric: encephalopathic Lymph, Heme, Immunologic: no cervical LAD ICD10 Worksheet Patient Problems: Problems Problem Status Onset Alcohol withdrawal Acute Cirrhosis of liver Acute Hypokalemia Acute Elevated liver function tests Acute H/O colonoscopy with polypectomy Acute LUQ abdominal pain Acute Opiate withdrawal Chronic
[2017-09-22] MEDS: THIAMINE HCL 100 MG TAB PO SCH (17:00)
[2017-09-22] MEDS ORDERED: POTASSIUM CL 10 MEQ TAB PO ONE (19:56)
[2017-09-23] MEDS ORDERED: POTASSIUM CL 10 MEQ TAB PO ONE (06:18)
[2017-09-23] MEDS: THIAMINE HCL 100 MG TAB PO SCH (08:11)
[2017-09-23] MEDS: ENOXAPARIN 40 MG/0.4 ML SYR SC SCH (08:11)
[2017-09-23] MEDS: chlordiazePOXIDE 25 MG CAP PO SCH ×3 (08:11→22:48)
--- NOTE | 2017-09-23 14:56 | HOSPPROG ---
Hospitalist Progress Note Assessment/Plan: # Acute alcohol withdrawal- improved today patient appears to have baseline tremor but is oriented on exam to place- oxygen saturations 95% on RA Telemetry (personally reviewed and interpreted) sinus in 70-80's - dc CIWA -cont Librium to 25 TID - cont po thiamine - continue PT OT-patient will clearly need placement will ask the licensed master social worker to begin investigating # severe alcohol related liver failure - bilirubin 18 at presentation-> remain 16 - cont supportive care and monitoring # acute hepatic encephalopathy- improved today however remains A & O x1 # proph - lovenox # diet - taking some PO- encourage more intake # dispo- > 2MN as pt remains acutely ill requiring treatment and therapies for safe dispo I have discussed the case with PharmD - we will stop CIWA scoring and continue scheduled librium Subjective: denies pain Objective: Vital Signs Temp Pulse Resp BP Pulse Ox 36.6 C 73 23 H 116/54 L 95 09/23/17 07:44 09/23/17 07:44 09/23/17 07:44 09/23/17 07:44 09/23/17 07:44 Laboratory Results 09/23/17 05:00 09/22/17 09/23/17 09/24/17 05:59 05:59 05:59 Intake Total 1576 525 Output Total 675 350 Balance 901 175 PT 15.1 SEC (12.0-15.0) H 09/19/17 01:45 INR 1.17 (0.83-1.16) H 09/19/17 01:45 - Physical Exam Constitutional: no apparent distress Eyes: anicteric sclera Ears, Nose, Mouth, Throat: dry mucous membranes Cardiovascular: regular rate and rhythym Respiratory: no respiratory distress Gastrointestinal: normoactive bowel sounds Genitourinary: no bladder fullness Skin: warm Musculoskeletal: No asymmetric calves Neurologic: No AAOx3 Psychiatric: poor insight, poor judgement, poor memory, No interacting appropriately Lymph, Heme, Immunologic: no cervical LAD ICD10 Worksheet Patient Problems: Problems Problem Status Onset Alcohol withdrawal Acute Cirrhosis of liver Acute Hypokalemia Acute Elevated liver function tests Acute H/O colonoscopy with polypectomy Acute LUQ abdominal pain Acute Opiate withdrawal Chronic
--- NOTE | 2017-09-23 15:40 | ASMTCMCOM ---
CM Note CM Note Notes: Ghada Loja, patient's sister called again today to get an update. Connected her with patient's nurse, Dyana and it worked out she could listen to the interaction Dr. Pack was having with the patient. Patient is still not clear enough to discuss resources and d/c plans. PT continues to recommend SNF rehab for patient at d/c. Sent out a few referrals just to get the process started though we don't know yet what patient's preferences are. CM will follow. Date Signed: 09/23/2017 03:40 PM Electronically Signed By:Kayla Livingston LCSW
[2017-09-23] MEDS: D5W NS W/ 20 KCl/L 1,000 ML IV SCH (17:33)
[2017-09-24] MEDS: D5W NS W/ 20 KCl/L 1,000 ML IV SCH ×2 (03:28→15:01)
[2017-09-24] MEDS ORDERED: POTASSIUM CL 10 MEQ TAB PO ONE (08:51)
[2017-09-24] MEDS: chlordiazePOXIDE 25 MG CAP PO SCH (10:31)
[2017-09-24] MEDS: ENOXAPARIN 40 MG/0.4 ML SYR SC SCH (10:31)
[2017-09-24] MEDS: THIAMINE HCL 100 MG TAB PO SCH (10:32)
--- NOTE | 2017-09-24 10:54 | HOSPPROG ---
Hospitalist Progress Note Assessment/Plan: 67-year-old alcoholic is admitted through the [facility] with acute alcohol withdrawal. He does have a history of alcoholic cirrhosis with his last total bili prior to this admission around 5. Today he is more encephalopathic and appears to be having some melena per the nurse. # Acute alcohol withdrawal-today is more somnolent and difficult to arouse. He is on scheduled Librium. * Will hold scheduled Librium until patient is more alert * Will change to prn ativan, given liver failure. * Add Xifaxan for possible hepatic encephalopathy * # melena, heme-positive stools. Patient at risk for gastritis, H&H stable vital signs stable. Will start him on Protonix twice daily and ask GI to see for possible endoscopy patient high risk for bleeding esophageal varices. Will cycle hemoglobins * IV Protonix * GI consult * Serial hemoglobins * check INR # right upper quadrant tenderness in a patient with alcoholic cirrhosis, elevated TB. Discussed with GI who feels we should rule out gallbladder disease. * Order ultrasound # severe alcohol related liver failure - bilirubin 18 at presentation-> remain 16 without significant ion exchange operator his hospitalization * cont supportive care and monitoring # acute hepatic encephalopathy- pretty somnolent today possibly secondary to the benzo versus worsening encephalopathy * Add Xifaxan and consider lactulose # proph - lovenox on hold due to melena # diet - NPO # dispo- > 2MN as pt remains acutely ill requiring treatment and therapies for safe dispo Subjective: Patient pretty somnolent this morning. Patient new to vt and chart reviewed Objective: Vital Signs Temp Pulse Resp BP Pulse Ox 37.3 C 79 16 117/73 94 09/24/17 07:35 09/24/17 07:35 09/24/17 07:35 09/24/17 07:35 09/24/17 07:35 Laboratory Results 09/24/17 04:35 09/24/17 04:35 09/23/17 09/24/17 09/25/17 05:59 05:59 05:59 Intake Total 525 1604 Output Total 350 750 Balance 175 854 PT 15.1 SEC (12.0-15.0) H 09/19/17 01:45 INR 1.17 (0.83-1.16) H 09/19/17 01:45 - Physical Exam Constitutional: other (Somnolent) Eyes: anicteric sclera Ears, Nose, Mouth, Throat: ears appear normal Cardiovascular: regular rate and rhythym Respiratory: no respiratory distress, bronchial breath sounds Gastrointestinal: no palpable masses, No normoactive bowel sounds (Decreased but present), No distension Genitourinary: no bladder fullness Skin: warm, No normal color (Jaundice) Musculoskeletal: No full muscle strength Neurologic: No AAOx3 Psychiatric: No interacting appropriately ICD10 Worksheet Patient Problems: Problems Problem Status Onset Opiate withdrawal Chronic LUQ abdominal pain Acute H/O colonoscopy with polypectomy Acute Alcohol withdrawal Acute Elevated liver function tests Acute Hypokalemia Acute Cirrhosis of liver Acute
[2017-09-24] MEDS ORDERED: LORazepam 0.5 MG TAB PO PRN (11:03)
--- NOTE | 2017-09-24 11:27 | ASMTCMCOM ---
CM Note CM Note Notes: Clementine from [facility] came to see Pt. today. He is still too confused for a conversation about placement. [facility] to review next week. On [employer], Joanne from [facility] recommends referring to [facility] because they take [employer] Medicare. Roseanne sent new referral to [place] today via [employer]. CM to follow. Date Signed: 09/24/2017 11:26 AM Electronically Signed By:Sharlene Holguin LCSW
[2017-09-24] MEDS ORDERED: cefTRIAXone 1 GM in STERILE WATER INJ 10 ML IV SCH (13:15)
[2017-09-24] MEDS: PANTOPRAZOLE SODIUM 40 MG VIAL IVP SCH ×2 (15:01→19:42)
--- NOTE | 2017-09-24 15:08 | GCON ---
[f rep st] CONSULTATION DATE OF CONSULTATION: 09/24/2017 CHIEF COMPLAINT: Melena. HPI: I am asked to see the patient in consultation by Dr. Moran for chief complaint of melena. Patient is a 67-year-old who was admitted to the hospital on September 19 for alcoholic withdrawal and alcoholic hepatitis. He had been receiving care for alcohol withdrawal, which he has a history of, and then this morning was noted to be more somnolent, and nurses report he has had 2 melenic stools. The patient is fairly somnolent, probably from over-sedation. I am unable to get history from the patient. History from the chart states that he does have history of alcohol abuse and alcohol withdrawal. There is no mention of prior history of GI bleeding, although he did have a colonoscopy in 2014 with removal of a large polyp and, per the chart, had episode of postpolypectomy bleeding a week later. Had failed to follow up with repeat colonoscopies. Patient does take Motrin. ALLERGIES: Penicillin. MEDICINES: Prior to admission are Motrin. PAST MEDICAL HISTORY: Alcohol abuse with history of withdrawal, history of colon polyps, history of kidney stones. SOCIAL HISTORY: Unable to obtain from patient but, per the chart, he drinks alcohol. Lives alone in [place]. FAMILY HISTORY: Per chart, negative for alcoholism. REVIEW OF SYSTEMS: Unable to obtain. PHYSICAL EXAM: VITAL SIGNS: He is afebrile at 37.3, BP 124/82, pulse 85. CONSTITUTIONAL: Patient is somnolent. EYES: He has scleral icterus. Oral lesion. I am unable to open his mouth, but lips appear normal. CARDIOVASCULAR: Regular rate and rhythm. CHEST: Clear to auscultation. ABDOMEN: Slightly distended. Soft, but he is tender in the epigastric and right upper quadrant area, without rebound. Difficult to assess for ascites, given his obese abdomen. NEUROLOGIC: Unable to obtain as patient is uncooperative and somnolent. SKIN: No obvious rashes, and there is no spider angiomata seen. LABORATORY DATA: BUN and creatinine are 11 and 0.5. Alkaline Phosphatase is 349 , AST 239, ALT 151, total bilirubin is 17.4, albumin is 2.6. Coags are pro time of 15.1 with INR 1.17. ASSESSMENT: 1. Patient with alcoholic liver disease with elevated liver function tests. He had previously tested negative for hepatitis A, B, and C 6 months ago. He likely does have alcoholic hepatitis, although his numbers, including the ALT and alk phos, are a bit elevated and need to consider other causes, especially in light of his right upper quadrant pain. Consider biliary source. 2. Melena. Patient may be having a mild gastrointestinal bleed. He is hemodynamically stable. No tachycardia or hypotension and his hematocrit is stable, so doubt he is having a significant gastrointestinal bleed. He has Motrin listed on his home medications, so consider gastritis, peptic ulcer disease, gastroesophageal reflux disease. I think esophageal varices are less likely. He does not have clear stigmata of chronic liver disease, although this should be considered. At this point, again, I think he is hemodynamically stable , but may benefit from upper endoscopy for further evaluation. Overall he would be high risk for endoscopy given liver disease and I will request assistance of anesthesiology. 3. Encephalopathy. This may be multifactorial, in part from oversedation for treatment of withdrawal and contributed by his gastrointestinal bleed. May have hepatic encephalopathy and can treat empirically. 4. History of colon polyps with failure to follow up. It is possible that melena may be coming from a colonic source so, at this point, patient would not be able to tolerate a bowel prep due to his somnolence. PLAN: 1. Recommend to hold his benzodiazepine or perhaps treat with shorter acting lower dose. 2. Recommend right upper quadrant ultrasound to rule out cholecystitis, as well as assess for underlying ascites and to assess his liver. 3. Suggest empiric antibiotics in the meantime for a patient with liver disease and GI bleed with ceftriaxone. 4. Recommend treat for possible hepatic encephalopathy with lactulose or Xifaxan. 5. Agree with empiric PPI and could consider octreotide if he should have evidence of more significant GI bleeding. 6. Recommend upper endoscopy. Will hold, make the patient n.p.o., and plan to proceed with this likely in the morning, unless he has evidence of more severe GI bleeding overnight. We will do this with anesthesia, given patient's liver disease, and may need to consider the patient would benefit from colonoscopy at some point when his status is more stable. I will follow up with you. Thank you for this consult. /[id number]/MODL MTDD
[2017-09-24] MEDS ORDERED: NS 500 ML IV ONE (15:59)
[2017-09-24 18:45] LABS: INR 1.41 (0.83-1.16); PROTIME(PATIENT) 17.4 SEC (12.0-15.0)
--- NOTE | 2017-09-24 20:09 | PDCONSULT ---
Dairy Nutritionist Note: #[id number] Acute Care/Trauma Surgery consult dictated La Nena Anand MD, FACS
[2017-09-24] MEDS ORDERED: IOPAMIDOL (ISOVUE-300) 100 ML BTL ONE (20:28)
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
[2017-09-25 02:08] LABS: PLATELET COUNT 145 10^3/uL (150-400)
[2017-09-25] MEDS: D5W NS W/ 20 KCl/L 1,000 ML IV SCH (03:39)
--- NOTE | 2017-09-25 09:08 | PDANEPAE ---
ANE History of Present Illness Patient presents for EGD ANE Past Medical History - Pulmonary History Hx Oxygen in Use at Home: No Hx Sleep Apnea: No Sleep Apnea Screening Result - Last Documented: Positive - Endocrine History Hx Diabetes: No - Chronic Pain History Chronic Pain: No ANE Review of Systems Review of Systems: - Exercise capacity Exercise capacity: unable to assess ANE Patient History - Allergies Allergies/Adverse Reactions: Penicillins Allergy (Intermediate, Verified 09/18/17 13:47) Hives - Home Medications Home Medications: Ibuprofen [Motrin (*)] 200 mg PO Q4-6PRN PRN 09/19/17 [Last Taken 09/18/17] - NPO status NPO Since - Liquids (Date): 09/24/17 NPO Since - Liquids (Time): 13:00 NPO Since - Solids (Date): 09/24/17 NPO Since - Solids (Time): 13:00 - Smoking Hx Smoking Status: Current every day smoker - Alcohol Use Alcohol Use: Heavy ANE Labs/Vital Signs - Labs Result Diagrams: 09/25/17 02:00 09/25/17 02:00 - Vital Signs Blood Pressure: 124/81 Heart Rate: 82 Respiratory Rate: 20 O2 Sat (%): 92 Height: 185.42 cm Weight: 83.6 kg ANE Physical Exam - Airway Mallampati Score: Unable to assesss - Pulmonary Pulmonary: no respiratory distress - Cardiovascular Cardiovascular: regular rate and rhythym - ASA Status ASA Status: III ANE Anesthesia Plan Anesthesia Plan: GA with mask (Unable to consents patient, no family. Will proceed out of medical necessary per Dr. Roblero. )
[2017-09-25] MEDS ORDERED: PROPOFOL/EMULSION 500 MG/50 ML BOTTLE IV ONE (09:12)
[2017-09-25] MEDS ORDERED: NALOXONE HCL 0.4 MG/ML INJ IVP PRN (09:33)
[2017-09-25] MEDS ORDERED: LR 500 ML IV PRN (09:33)
--- NOTE | 2017-09-25 09:33 | POSTANESTH ---
Post Anesthetic Evaluation Cardiovascular Status: Similar to Pre-Op Cond Respiratory Status: Similar to Pre-op Cond. Level of Consciousness/Mental Status: Mildly Sleepy, Arousable Pain Control: Adequate, Prn Tx Ordered Nausea/Vomiting Control: Adequate, Prn Tx Ordered Complications Possibly Related to Anesthesia: None Noted
[2017-09-25] MEDS: PANTOPRAZOLE SODIUM 40 MG VIAL IVP SCH ×2 (10:45→22:35)
[2017-09-25] MEDS: THIAMINE HCL 100 MG TAB PO SCH (10:45)
--- NOTE | 2017-09-25 11:35 | HOSPPROG ---
Hospitalist Progress Note Assessment/Plan: 67-year-old alcoholic is admitted through the [facility] with acute alcohol withdrawal. He does have a history of alcoholic cirrhosis with his last total bili prior to this admission around 5. Today he is more encephalopathic and appears to be having some melena per the nurse. # Acute alcohol withdrawal-slightly improved and less somnolent however speech is still fairly garbled * Will hold scheduled Librium until patient is more alert * Will change to prn ativan, given liver failure. Has not needed any Ativan yet * Add Xifaxan for possible hepatic encephalopathy * # melena, heme-positive stools. Patient at risk for gastritis, H&H stable vital signs stable. Status post endoscopy which showed gastritis and low risk for * Continue IV Protonix # right upper quadrant tenderness in a patient with alcoholic cirrhosis, elevated TB. Discussed with GI who feels we should rule out gallbladder disease. * Ultrasound showed evidence of a calculus cholecystitis * CT did show cholelithiasis without biliary dilation * Discussed with GI who would like to see a MRCP to make sure there is not a biliary stone causing it ongoing elevation of bili # severe alcohol related liver failure - bilirubin 18 at presentation-> remain 16 without significant manager exchange his hospitalization * cont supportive care and monitoring * Rule out other causes for elevated bilirubin # acute hepatic encephalopathy- pretty somnolent today possibly secondary to the benzo versus worsening encephalopathy * Add Xifaxan and consider lactulose # proph - lovenox on hold due to melena # diet - NPO # dispo- > 2MN as pt remains acutely ill requiring treatment and therapies for safe dispo Subjective: Mumbling, more alert able to answer some questions Objective: Vital Signs Temp Pulse Resp BP Pulse Ox 36.9 C 74 20 130/79 H 93 09/25/17 10:12 09/25/17 10:12 09/25/17 10:12 09/25/17 10:12 09/25/17 10:12 Laboratory Results 09/25/17 02:00 09/25/17 02:00 09/24/17 09/25/17 09/26/17 05:59 05:59 05:59 Intake Total 1604 942 200 Output Total 750 300 0 Balance 854 642 200 PT 17.4 SEC (12.0-15.0) H 09/24/17 18:28 INR 1.41 (0.83-1.16) H 09/24/17 18:28 - Physical Exam Constitutional: chronically ill appearing, uncomfortable Eyes: PERRL, icteric sclera Ears, Nose, Mouth, Throat: dry mucous membranes Cardiovascular: regular rate and rhythym Respiratory: no respiratory distress, bronchial breath sounds Gastrointestinal: tenderness (Minimal), distension (Mild) Genitourinary: no bladder fullness Skin: warm, No normal color (Jaundice) Musculoskeletal: generalized weakness Neurologic: No AAOx3 Psychiatric: encephalopathic ICD10 Worksheet Patient Problems: Problems Problem Status Onset Opiate withdrawal Chronic LUQ abdominal pain Acute H/O colonoscopy with polypectomy Acute Alcohol withdrawal Acute Elevated liver function tests Acute Hypokalemia Acute Cirrhosis of liver Acute
[2017-09-25] MEDS: THIAMINE HCL 100 MG in NS 50 ML IV SCH (12:58)
[2017-09-25] MEDS: D5W 1/2 NS W/ 20 KCl/L 1,000 ML IV SCH ×2 (12:58→22:54)
--- NOTE | 2017-09-25 16:48 | SOAPPROG ---
SOAP Progress Note Assessment/Plan: Assessment/Plan: -67yo alcoholic, encephalopathic, hyperbilirubinemia, hepatomegaly - Still obtunded, although able to deny abd pain - TBili still remains elevated at almost 16, mostly conjugated - Reviewed CT scan and ultrasound. CT shows no secondary signs of cholecystitis , normal ductal architecture but does show some small stones vs sludge - CT also shows massive hepatomegaly which is concerning given previous MR showed relatively normal size - Dont think this is cholecystitis (normal CT, no pain, normal WBC, massive elevation of bili). And if it were would defer surgery until massive hepatomegaly resolved (weeks to months) and treat with abx even if cholecystitis could be proven 09/25/17 16:43 09/25/17 16:45 Subjective: confused Objective: Vital Signs Temp Pulse Resp BP Pulse Ox 37.7 C 84 28 H 152/89 H 97 09/25/17 15:33 09/25/17 15:33 09/25/17 15:33 09/25/17 15:33 09/25/17 15:33 Laboratory Results 09/25/17 12:05 09/25/17 02:00 09/24/17 09/25/17 09/26/17 05:59 05:59 05:59 Intake Total 1604 942 200 Output Total 750 300 0 Balance 854 642 200 PT 17.4 SEC (12.0-15.0) H 09/24/17 18:28 INR 1.41 (0.83-1.16) H 09/24/17 18:28 ICD10 Worksheet Patient Problems: Problems Problem Status Onset Alcohol withdrawal Acute Cirrhosis of liver Acute Hypokalemia Acute Elevated liver function tests Acute H/O colonoscopy with polypectomy Acute LUQ abdominal pain Acute Opiate withdrawal Chronic
[2017-09-26 04:53] LABS: PLATELET COUNT 179 10^3/uL (150-400)
[2017-09-26] MEDS: D5W 1/2 NS W/ 20 KCl/L 1,000 ML IV SCH ×2 (06:42→20:03)
[2017-09-26] MEDS ORDERED: POTASSIUM Cl (KCl) 100 ML IV SCH (08:15)
[2017-09-26] MEDS: PANTOPRAZOLE SODIUM 40 MG VIAL IVP SCH ×2 (08:38→21:46)
[2017-09-26] MEDS: THIAMINE HCL 100 MG in NS 50 ML IV SCH (08:44)
[2017-09-26] MEDS ORDERED: ERTAPENEM 1 GM VIAL IV SCH (09:00)
[2017-09-26] MEDS: POTASSIUM Cl (KCl) 10 MEQ in NS 100 ML IV SCH ×5 (09:53→22:08)
--- NOTE | 2017-09-26 10:54 | SOAPPROG ---
SOAP Progress Note Assessment/Plan: Assessment/Plan: -67yo alcoholic, encephalopathic, hyperbilirubinemia, hepatomegaly - obtundation appears to be improving, we are thinking now 2/2 meds and poor clearance. - WBC remains WNL, afebrile, abdomen soft and he c/o no abdominal pain. - still needs MR, awaiting more mental capacity to be able to tolerate scan - discussed with Dr Moran, surgery signing off. She will call back of MR shows anything we can be of assistance with 09/25/17 16:43 09/25/17 16:45 09/26/17 10:53 Subjective: maybe a little more alert today, knows his name but not much else. Objective: Vital Signs Temp Pulse Resp BP Pulse Ox 36.3 C 72 30 H 143/81 H 95 09/26/17 07:58 09/26/17 07:58 09/26/17 07:58 09/26/17 07:58 09/26/17 07:58 Laboratory Results 09/26/17 04:22 09/26/17 04:22 09/25/17 09/26/17 09/27/17 05:59 05:59 05:59 Intake Total 942 1575 Output Total 300 625 Balance 642 950 PT 17.4 SEC (12.0-15.0) H 09/24/17 18:28 INR 1.41 (0.83-1.16) H 09/24/17 18:28 ICD10 Worksheet Patient Problems: Problems Problem Status Onset Alcohol withdrawal Acute Cirrhosis of liver Acute Hypokalemia Acute Elevated liver function tests Acute H/O colonoscopy with polypectomy Acute LUQ abdominal pain Acute Opiate withdrawal Chronic
--- NOTE | 2017-09-26 10:59 | SOAPPROG ---
SOAP Progress Note Assessment/Plan: Assessment: GIB from erosive gastritis no active bleeding and H+H stable Decrease mental status likely multifactorial from over sedation and recent GIB Elevated LFt suspect ETOH hepatitis bt ALT and Alk phos higher then usual . Hep A,B,C negative from prior admission. ? biliary obstruction as pt has gallstones and thicken GB. No fever or elevated WBC Plan: PPI IV Suggest Xifaxin or lactulose Monitor LFt and agree with MRCP when MS better 09/26/17 10:59 Subjective: CC Melena Pt more alert today denies abd pain. No melena reported Objective: Vital Signs Temp Pulse Resp BP Pulse Ox 36.3 C 72 30 H 143/81 H 95 09/26/17 07:58 09/26/17 07:58 09/26/17 07:58 09/26/17 07:58 09/26/17 07:58 Laboratory Results 09/26/17 04:22 09/26/17 04:22 09/25/17 09/26/17 09/27/17 05:59 05:59 05:59 Intake Total 942 1575 Output Total 300 625 Balance 642 950 PT 17.4 SEC (12.0-15.0) H 09/24/17 18:28 INR 1.41 (0.83-1.16) H 09/24/17 18:28 Physical Exam - Physical Exam General Appearance: no apparent distress Respiratory: normal breath sounds Cardiac/Chest: regular rate, rhythm Abdomen: non-tender, soft ICD10 Worksheet Patient Problems: Problems Problem Status Onset Opiate withdrawal Chronic LUQ abdominal pain Acute H/O colonoscopy with polypectomy Acute Alcohol withdrawal Acute Elevated liver function tests Acute Hypokalemia Acute Cirrhosis of liver Acute
--- NOTE | 2017-09-26 12:30 | HOSPPROG ---
Hospitalist Progress Note Assessment/Plan: 67-year-old alcoholic is admitted through the [facility] with acute alcohol withdrawal. He does have a history of alcoholic cirrhosis with his last total bili prior to this admission around 5. Today he is slightly improved able to say a few sentences before mottling # Acute alcohol withdrawal-slightly improved and less somnolent however speech is still fairly garbled * Will hold scheduled Librium until patient is more alert * Will DC Ativan * Add Xifaxan for possible hepatic encephalopathy * # melena, heme-positive stools. Status post endoscopy which showed gastritis and low risk for rebleed * Continue IV Protonix # diffuse weakness lower extremities greater than upper extremities. He does move all 4 extremities and has normal sensation. 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 Right upper quadrant tenderness has resolved * Ultrasound showed evidence of a calculus cholecystitis * CT did show cholelithiasis without biliary dilation * Will attempt to get MRI when patient more alert. # severe alcohol related liver failure - bilirubin 18 at presentation-> remain 16 without significant supervisor policy change clerks his hospitalization * cont supportive care and monitoring * Rule out other causes for elevated bilirubin # acute hepatic encephalopathy- pretty somnolent today possibly secondary to the benzo versus worsening encephalopathy * Add Xifaxan and consider lactulose # proph - lovenox on hold due to melena # diet - NPO # dispo- > 2MN as pt remains acutely ill requiring treatment and therapies for safe dispo Subjective: Slightly more alert today however certainly not functional quite weak in his lower extremities but able to move all 4 Objective: Vital Signs Temp Pulse Resp BP Pulse Ox 36.7 C 86 18 122/76 H 92 09/26/17 12:00 09/26/17 12:00 09/26/17 12:00 09/26/17 12:00 09/26/17 12:00 Laboratory Results 09/26/17 04:22 09/26/17 04:22 09/25/17 09/26/17 09/27/17 05:59 05:59 05:59 Intake Total 942 1575 Output Total 300 625 Balance 642 950 PT 17.4 SEC (12.0-15.0) H 09/24/17 18:28 INR 1.41 (0.83-1.16) H 09/24/17 18:28 - Physical Exam Constitutional: not in pain, chronically ill appearing Eyes: PERRL, EOMI, icteric sclera Ears, Nose, Mouth, Throat: moist mucous membranes Cardiovascular: regular rate and rhythym Respiratory: no respiratory distress, clear to auscultation Gastrointestinal: normoactive bowel sounds, No tenderness, No distension Genitourinary: no bladder fullness, other (Condom cath) Skin: warm Musculoskeletal: generalized weakness Neurologic: sensation intact bilaterally, weakness, No AAOx3 Psychiatric: interacting appropriately, not anxious, encephalopathic, poor insight, poor memory, No agitated ICD10 Worksheet Patient Problems: Problems Problem Status Onset Opiate withdrawal Chronic LUQ abdominal pain Acute H/O colonoscopy with polypectomy Acute Alcohol withdrawal Acute Elevated liver function tests Acute Hypokalemia Acute Cirrhosis of liver Acute
--- NOTE | 2017-09-27 08:57 | HOSPPROG ---
Hospitalist Progress Note Assessment/Plan: 67-year-old alcoholic is admitted through the [facility] with acute alcohol withdrawal. He does have a history of alcoholic cirrhosis with his last total bili prior to this admission around 5. He continues to be quite confused. Says he needs to catch a train. His friend who is known for a long time is in the room and says he has been drinking rather than eating his food for the last several months and has a long history of alcoholism. His sister does not want his friend Jovi making any decisions. # Acute alcohol withdrawal-I feel his withdrawal has completed and will discontinue the CIWA since the benzos made him quite sedated * Add Xifaxan for possible hepatic encephalopathy * # melena, heme-positive stools. Status post endoscopy which showed gastritis and low risk for rebleed * Continue IV Protonix # diffuse weakness lower extremities greater than upper extremities. He does move all 4 extremities and has normal sensation. 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 Right upper quadrant tenderness has resolved * Ultrasound showed evidence of a calculus cholecystitis * CT did show cholelithiasis without biliary dilation * Will attempt to get MRI when patient more alert. * # severe alcohol related liver failure - bili with slow decrease over last few days. High-degree of direct bilirubin with no other signs of significant liver failure on his evaluation. I discussed this with GI and it is unclear if this is all alcohol-induced or if there is something else going on in his biliary tree. We are attempting to get an MRI however the patient has not been alert enough to get this done. Currently on Invanz for possible gallbladder bladder disease although given his negative pain will discontinue it * cont supportive care and monitoring * Rule out other causes for elevated bilirubin when able * DC Invanz for now # acute hepatic encephalopathy- more alert but quite confused. Was able to get into the chair yesterday. * Add Xifaxan and consider lactulose * Continue supportive care patient will need long-term care eventually # proph - lovenox on hold due to melena # diet - NPO # dispo- > 2MN as pt remains acutely ill requiring treatment and therapies for safe dispo. I spoke with his sister Ghada who is fearful because Lon's friend Jovi has been visiting and lying to her. He also claims he is the power of graphic design professor. I talked with CM to set up a proxy/ POA. Subjective: Patient more confused this morning, he does have a variable course. Will continue to follow his mental status through the day he has no pain complaints Objective: Vital Signs Temp Pulse Resp BP Pulse Ox 36.7 C 65 18 124/76 H 96 09/27/17 04:00 09/27/17 04:00 09/27/17 04:00 09/27/17 04:00 09/27/17 04:00 Laboratory Results 09/26/17 04:22 09/27/17 04:37 09/26/17 09/27/17 09/28/17 05:59 05:59 05:59 Intake Total 1575 2255 Output Total 625 1050 Balance 950 1205 PT 17.4 SEC (12.0-15.0) H 09/24/17 18:28 INR 1.41 (0.83-1.16) H 09/24/17 18:28 - Physical Exam Constitutional: chronically ill appearing, unkempt Eyes: PERRL, icteric sclera Ears, Nose, Mouth, Throat: moist mucous membranes Cardiovascular: regular rate and rhythym Respiratory: no respiratory distress Gastrointestinal: soft, non-tender abdomen Genitourinary: no bladder fullness, other (Condom cath in place) Skin: No normal color (Jaundice) Musculoskeletal: generalized weakness Neurologic: No AAOx3 Psychiatric: encephalopathic ICD10 Worksheet Patient Problems: Problems Problem Status Onset Opiate withdrawal Chronic LUQ abdominal pain Acute H/O colonoscopy with polypectomy Acute Alcohol withdrawal Acute Elevated liver function tests Acute Hypokalemia Acute Cirrhosis of liver Acute
[2017-09-27] MEDS ORDERED: POTASSIUM CL 10 MEQ TAB PO ONE (09:26)
[2017-09-27] MEDS: PANTOPRAZOLE SODIUM 40 MG VIAL IVP SCH ×2 (09:38→22:53)
[2017-09-27] MEDS: RIFAXIMIN 550 MG TAB PO SCH ×2 (09:38→23:35)
--- NOTE | 2017-09-27 09:45 | SOAPPROG ---
SOAP Progress Note Assessment/Plan: Assessment: GIB from erosive gastritis no active bleeding and H+H stable Decrease mental status likely multifactorial from over sedation and recent GIB Elevated LFt suspect ETOH hepatitis bt ALT and Alk phos higher then usual . Hep A,B,C negative from prior admission. ? biliary obstruction as pt has gallstones and thicken GB. No fever or elevated WBC Plan: PPI IV Suggest Xifaxin or lactulose Monitor LFt and agree with MRCP when MS better 09/26/17 10:59 09/27/17 09:42 GI bleed resolved Altered mental status improve, ammonia normal Elevated LFt presumed ETOH hepatitis slowly improving Plan: Continue PPI Agree with MRCP when able Will follow Form a distance Subjective: CC Melena No further bleeding, patient more alert trying POs Objective: Vital Signs Temp Pulse Resp BP Pulse Ox 36.6 C 74 20 151/94 H 92 09/27/17 08:00 09/27/17 08:00 09/27/17 08:00 09/27/17 08:00 09/27/17 08:00 Laboratory Results 09/26/17 04:22 09/27/17 04:37 09/26/17 09/27/17 09/28/17 05:59 05:59 05:59 Intake Total 1575 2255 Output Total 625 1050 Balance 950 1205 PT 17.4 SEC (12.0-15.0) H 09/24/17 18:28 INR 1.41 (0.83-1.16) H 09/24/17 18:28 Physical Exam - Physical Exam General Appearance: no apparent distress Respiratory: lungs clear Cardiac/Chest: regular rate, rhythm Abdomen: soft (mild tenderness in epigastric area) ICD10 Worksheet Patient Problems: Problems Problem Status Onset Alcohol withdrawal Acute Cirrhosis of liver Acute Hypokalemia Acute Elevated liver function tests Acute H/O colonoscopy with polypectomy Acute LUQ abdominal pain Acute Opiate withdrawal Chronic
[2017-09-27] MEDS: THIAMINE HCL 100 MG in NS 50 ML IV SCH (11:43)
--- NOTE | 2017-09-27 12:15 | WOCRNPDOC ---
WOCRN Advanced Assessment Note - Skin Integrity Problem, Advanced Assess Left Medial Ankle Dressing Type: Allevyn Life Dressing Description: Clean/Dry, Intact Exudate Amount: None Skin Integrity Problem Comment: Re-epithelization in progress. Healing well. No concerns. Wound care will sign off.
--- NOTE | 2017-09-27 16:26 | ASMTCMCOM ---
CM Note CM Note Notes: Spoke with pt's sister Ghada regarding her concerns about one of the pt's friends telling people in the community he is "the proxy." Explained to her the proxy procedure and since pt is still confused, asked about other family members and their contact information so a proxy could be established. She has a brother Don and her parents are still alive. Her father Remy is 92 yo and having a heart procedure this week and her mother Loly is 90 yo. Ghada did not want them contacted this week given the upcoming heart procedure. She will provide family contact info if pt continues to be confused. SNF referralls have been made - d/c needs unclear at this time. Date Signed: 09/27/2017 04:25 PM Electronically Signed By:MIKA Gunn
[2017-09-27] MEDS: POTASSIUM Cl (KCl) 10 MEQ in NS 100 ML IV SCH ×2 (22:05→23:33)
[2017-09-27] MEDS: POTASSIUM Cl (KCl) 20 MEQ in D5W 1,000 ML IV SCH (23:34)
[2017-09-28] MEDS: POTASSIUM Cl (KCl) 10 MEQ in NS 100 ML IV SCH ×4 (00:43→22:31)
[2017-09-28 07:20] LABS: PLATELET COUNT 221 10^3/uL (150-400)
[2017-09-28 07:28] LABS: INR 1.5 (0.83-1.16); PROTIME(PATIENT) 18.3 SEC (12.0-15.0)
--- NOTE | 2017-09-28 08:42 | GIREPORT ---
[facility] Surgical Services - Endoscopy Department Patient Name: JOSÉ LUIS ADRIAN Procedure Date: 09/25/2017 8:45 AM Patient Type: Inpatient Attending MD/ ER Physician: Mary Roblero MD Procedure: Upper GI endoscopy Indications: Melena Providers: Mary Roblero MD Medicines: Monitored Anesthesia Care Complications: No immediate complications. Description of Procedure: After obtaining informed consent, the endoscope was passed under direct vision. Throughout the procedure, the patient's blood pressure, pulse, and oxygen saturations were monitored continuously. The Endoscope was intro duced through the mouth, and advanced to the second part of duodenum. [facility] was accomplished without difficulty. The patient tolerated th e procedure well. Findings: A medium-sized hiatal hernia was present. Three, medium non-bleeding erosions were found in the gastric antrum. T here were no stigmata of recent bleeding. Biopsies were taken with a cold fo rceps for histology. Estimated blood loss was minimal. The examined duodenum was normal. Estimated Blood Loss: Estimated blood loss was minimal. Post Op Diagnosis: - Medium-sized hiatal hernia. No esophageal varices. - Non-bleeding erosive gastropathy. Biopsied. No active bleeding and lo w risk for serious rebleeding. - Normal examined duodenum. Recommendation: - Await pathology results. - Use Protonix (pantoprazole) 40 mg IV BID. Can change to PO PPI for 8 weeks once taking PO well. - Return patient to [facility] for ongoing care. - Thank you for allowing me to participate in the care of your patient. Attending Participation: I personally performed the entire procedure. Mary Roblero MD Mary Roblero MD 09/25/2017 9:27:00 AM This report has been signed electronicallyMary Roblero MD Number of Addenda: 0 Note Initiated On: 09/25/2017 8:45 AM [email or web address]
[2017-09-28] MEDS: THIAMINE HCL 100 MG TAB PO SCH (09:33)
[2017-09-28] MEDS: RIFAXIMIN 550 MG TAB PO SCH ×2 (09:33→21:31)
[2017-09-28] MEDS: POTASSIUM Cl (KCl) 20 MEQ in D5W 1,000 ML IV SCH ×2 (11:20→18:09)
[2017-09-28] MEDS: PANTOPRAZOLE SODIUM 40 MG VIAL IVP SCH ×2 (11:20→20:14)
--- NOTE | 2017-09-28 11:49 | HOSPPROG ---
Hospitalist Progress Note Assessment/Plan: 67-year-old alcoholic is admitted through the [facility] with acute alcohol withdrawal. He does have a history of alcoholic cirrhosis with his last total bili prior to this admission around 5. He continues to be quite confused. Unclear who is making decisions, possibly his sister though no documentation. # acute encephalopathy - likely etOH, remains very confused - need to cont Xifaxan and lactulose but difficult given aspiration risk; may need dobhoff - check ammonia # acute etOH w/d - seems resolved, stable off CIWA # acute hepatitis - suspect this is d/t etOH; also consider biliary pathology - doubt cholecystitis given no Nolan's, afebrile, normal WBC - Maddrey's DF = 38 - qualifies for steroids; very high risk of mortality; will d/w GI - check MRI abdomen when less confused # diffuse weakness - suspect related to above # gastirits/melena s/p EGD - protonix IV bid Subjective: still confused; denies pain Objective: Vital Signs Temp Pulse Resp BP Pulse Ox 36.8 C 80 16 130/85 H 98 09/28/17 10:52 09/28/17 10:52 09/28/17 10:52 09/28/17 10:52 09/28/17 10:52 Laboratory Results 09/28/17 07:12 09/28/17 07:12 09/27/17 09/28/17 09/29/17 05:59 05:59 05:59 Intake Total 2255 3666 Output Total 1050 800 Balance 1205 2866 PT 18.3 SEC (12.0-15.0) H 09/28/17 07:12 INR 1.50 (0.83-1.16) H 09/28/17 07:12 high risk - Physical Exam Constitutional: unkempt Cardiovascular: regular rate and rhythym, no murmur, rub, or gallop Respiratory: no respiratory distress, no rales or rhonchi Gastrointestinal: soft, non-tender abdomen, No nolan's sign ICD10 Worksheet Patient Problems: Problems Problem Status Onset Opiate withdrawal Chronic LUQ abdominal pain Acute H/O colonoscopy with polypectomy Acute Alcohol withdrawal Acute Elevated liver function tests Acute Hypokalemia Acute Cirrhosis of liver Acute
--- NOTE | 2017-09-28 17:20 | ASMTCMCOM ---
CM Note CM Note Notes: PROXY: It has been determined that this patient is currently confused and lacks the capacity to make or express decisions regarding medical care. The following interested persons have been contacted: Ghada Durand (sister) #[phone] and brother, Don #[phone]. Don and Ghada state they have elderly parents (in their 90s) and father is scheduled for a procedure in the next couple of days. Given parent's current situation, they are not aware of patient's medical condition and Don and Ghada do not feel comfortable informing parents at this time. Per Ghada and Don, patient does have some friends in the area, they are not sure how to contact any of them and do not feel they can be 'trusted.' Consensus has been reached and Ghada Loja (sister) will act as Proxy Decision maker. Primary RN, CTL and Hospital Medicine have all been notified of this decision. Case Management will continue to follow case. Date Signed: 09/28/2017 05:19 PM Electronically Signed By:Tiffanie Woodward RN
[2017-09-28] MEDS: methylPREDNISolone SOD SUCC 40 MG/ML VIAL IVP SCH (18:25)
--- NOTE | 2017-09-29 00:56 | CPEKG ---
Heart Rate: 52 RR Interval: 1154 P-R Interval: 160 QRSD Interval: 84 QT Interval: 476 QTC Interval: 443 P [place]: 31 QRS [place]: 7 T Wave [place]: 19 EKG Severity - BORDERLINE ECG - EKG Impression: SINUS RHYTHM EKG Impression: LOW VOLTAGE THROUGHOUT Electronically Signed By: Bucky Lopez 29-Sep-2017 11:04:03
[2017-09-29 04:58] LABS: PLATELET COUNT 207 10^3/uL (150-400)
[2017-09-29] MEDS: POTASSIUM Cl (KCl) 20 MEQ in D5W 1,000 ML IV SCH ×2 (05:05→15:03)
--- NOTE | 2017-09-29 09:19 | HOSPPROG ---
Hospitalist Progress Note Assessment/Plan: 67-year-old alcoholic is admitted through the [facility] with acute alcohol withdrawal. He does have a history of alcoholic liver disease with his last total bili prior to this admission around 5. He continues to be quite confused. Unclear who is making decisions, possibly his sister though no documentation. # acute encephalopathy - likely etOH VS HE; maybe better today - hopefully he will take PO today and we can start Xifaxan and lactulose # acute etOH w/d - seems resolved, stable off CIWA # acute hepatitis - suspect this is d/t etOH; also consider biliary pathology - doubt cholecystitis given no Nolan's, afebrile, normal WBC - Maddrey's DF = 38 - qualifies for steroids, started yesterday - very high risk of mortality; will d/w GI today - call placed to Dr Roblero - check MRI abdomen when less confused # diffuse weakness - suspect related to above # gastirits/melena s/p EGD - protonix IV bid Subjective: asking for food and water; AOx2 today, more alert Objective: Vital Signs Temp Pulse Resp BP Pulse Ox 36.4 C 53 L 24 H 121/77 H 95 09/29/17 07:25 09/29/17 07:25 09/29/17 07:25 09/29/17 07:25 09/29/17 07:25 Laboratory Results 09/29/17 04:44 09/29/17 04:44 09/28/17 09/29/17 09/30/17 05:59 05:59 05:59 Intake Total 3666 2496 Output Total 800 1750 Balance 2866 746 PT 18.3 SEC (12.0-15.0) H 09/28/17 07:12 INR 1.50 (0.83-1.16) H 09/28/17 07:12 - Physical Exam Constitutional: unkempt Cardiovascular: regular rate and rhythym, no murmur, rub, or gallop Respiratory: no respiratory distress, no rales or rhonchi Gastrointestinal: soft, non-tender abdomen, hepatosplenomegally, No guarding, No rebound Neurologic: other (equivical asterixis) ICD10 Worksheet Patient Problems: Problems Problem Status Onset Opiate withdrawal Chronic LUQ abdominal pain Acute H/O colonoscopy with polypectomy Acute Alcohol withdrawal Acute Elevated liver function tests Acute Hypokalemia Acute Cirrhosis of liver Acute
[2017-09-29] MEDS: methylPREDNISolone SOD SUCC 40 MG/ML VIAL IVP SCH (09:28)
[2017-09-29] MEDS: THIAMINE HCL 100 MG TAB PO SCH (09:38)
[2017-09-29] MEDS: RIFAXIMIN 550 MG TAB PO SCH ×3 (09:38→22:45)
[2017-09-29] MEDS: PANTOPRAZOLE SODIUM 40 MG VIAL IVP SCH ×2 (09:54→22:46)
--- NOTE | 2017-09-29 11:53 | SOAPPROG ---
SOAP Progress Note Assessment/Plan: Assessment: Decrease mental status likely multifactorial from over sedation and recent GIB now with elevated ammonia Elevated LFt suspect ETOH hepatitis bt ALT and Alk phos higher then usual . Hep A,B,C negative from prior admission. ? biliary obstruction as pt has gallstones and thicken GB. No fever or elevated WBC GIB no rebleeding Plan: PPI IV Agree with steroids agree with Xifaxin or lactulose Suggest MRCP 09/26/17 10:59 Subjective: CC elevated LFT Pt more alert no rebleeding notes some upper abd pain Objective: Vital Signs Temp Pulse Resp BP Pulse Ox 36.4 C 53 L 24 H 121/77 H 95 09/29/17 07:25 09/29/17 07:25 09/29/17 07:25 09/29/17 07:25 09/29/17 07:25 Laboratory Results 09/29/17 04:44 09/29/17 04:44 09/28/17 09/29/17 09/30/17 05:59 05:59 05:59 Intake Total 3666 2496 Output Total 800 1750 Balance 2866 746 PT 18.3 SEC (12.0-15.0) H 09/28/17 07:12 INR 1.50 (0.83-1.16) H 09/28/17 07:12 Physical Exam - Physical Exam General Appearance: no apparent distress Respiratory: lungs clear Cardiac/Chest: regular rate, rhythm Abdomen: soft (mild ruq tenderness) ICD10 Worksheet Patient Problems: Problems Problem Status Onset Alcohol withdrawal Acute Cirrhosis of liver Acute Hypokalemia Acute Elevated liver function tests Acute H/O colonoscopy with polypectomy Acute LUQ abdominal pain Acute Opiate withdrawal Chronic
[2017-09-29] MEDS: LACTULOSE 20 GM/30 ML UDCUP PO SCH ×3 (12:03→22:46)
[2017-09-30] MEDS: POTASSIUM Cl (KCl) 20 MEQ in D5W 1,000 ML IV SCH ×3 (01:08→17:38)
[2017-09-30] MEDS ORDERED: POTASSIUM CL 10 MEQ TAB PO ONE ×2 (07:36→20:42)
[2017-09-30 08:10] LABS: PLATELET COUNT 225 10^3/uL (150-400)
[2017-09-30 09:01] LABS: INR 1.5 (0.83-1.16); PROTIME(PATIENT) 18.3 SEC (12.0-15.0)
[2017-09-30] MEDS: THIAMINE HCL 100 MG TAB PO SCH (09:07)
[2017-09-30] MEDS: RIFAXIMIN 550 MG TAB PO SCH ×2 (09:07→20:44)
[2017-09-30] MEDS: methylPREDNISolone SOD SUCC 40 MG/ML VIAL IVP SCH (09:08)
[2017-09-30] MEDS: PANTOPRAZOLE SODIUM 40 MG VIAL IVP SCH ×2 (09:08→20:43)
[2017-09-30] MEDS: LACTULOSE 20 GM/30 ML UDCUP PO SCH ×3 (09:08→21:18)
--- NOTE | 2017-09-30 10:02 | SOAPPROG ---
SOAP Progress Note Assessment/Plan: Assessment: Decrease mental status likely multifactorial from over sedation and recent GIB now with elevated ammonia Elevated LFt suspect ETOH hepatitis bt ALT and Alk phos higher then usual . Hep A,B,C negative from prior admission. ? biliary obstruction as pt has gallstones and thicken GB. No fever or elevated WBC GIB no rebleeding Plan: PPI IV Agree with steroids agree with Xifaxin or lactulose Suggest MRCP 09/26/17 10:59 09/30/17 10:00 A/ Still with elevated LFT no significant improvement MS slowly improving P/ Await MRCP if negative consider serology eval for elevated LFT Subjective: CC elevated LFT Pt eating states legs feel weaK Objective: Vital Signs Temp Pulse Resp BP Pulse Ox 36.4 C 60 20 112/80 94 09/30/17 08:00 09/30/17 08:00 09/30/17 08:00 09/30/17 08:00 09/30/17 08:00 Laboratory Results 09/30/17 07:59 09/30/17 04:49 09/29/17 09/30/17 10/01/17 05:59 05:59 05:59 Intake Total 2496 2469 Output Total 1750 1900 800 Balance 746 569 -800 PT 18.3 SEC (12.0-15.0) H 09/30/17 07:59 INR 1.50 (0.83-1.16) H 09/30/17 07:59 Physical Exam - Physical Exam General Appearance: no apparent distress Respiratory: lungs clear Cardiac/Chest: regular rate, rhythm Abdomen: non-tender, soft ICD10 Worksheet Patient Problems: Problems Problem Status Onset Alcohol withdrawal Acute Cirrhosis of liver Acute Hypokalemia Acute Elevated liver function tests Acute H/O colonoscopy with polypectomy Acute LUQ abdominal pain Acute Opiate withdrawal Chronic
--- NOTE | 2017-09-30 10:23 | HOSPPROG ---
Hospitalist Progress Note Assessment/Plan: 67-year-old alcoholic is admitted through the [facility] with acute alcohol withdrawal. He does have a history of alcoholic liver disease with his last total bili prior to this admission around 5. He continues to be quite confused. Unclear who is making decisions, possibly his sister though no documentation. # acute encephalopathy - likely etOH VS HE; maybe better today - now taking PO lactulose and xifaxan # acute etOH w/d - seems resolved, stable off CIWA # acute hepatitis - suspect this is d/t etOH; also consider biliary pathology - doubt cholecystitis given no Nolan's, afebrile, normal WBC - Maddrey's DF = 38 - currently on steroids - check MRI abdomen will try today # diffuse weakness - suspect related to above # gastirits/melena s/p EGD - protonix IV bid Subjective: still confused; working with PT Objective: Vital Signs Temp Pulse Resp BP Pulse Ox 36.4 C 60 20 112/80 94 09/30/17 08:00 09/30/17 08:00 09/30/17 08:00 09/30/17 08:00 09/30/17 08:00 Laboratory Results 09/30/17 07:59 09/30/17 04:49 09/29/17 09/30/17 10/01/17 05:59 05:59 05:59 Intake Total 2496 2469 Output Total 1750 1900 800 Balance 746 569 -800 PT 18.3 SEC (12.0-15.0) H 09/30/17 07:59 INR 1.50 (0.83-1.16) H 09/30/17 07:59 - Physical Exam Constitutional: no apparent distress, appears nourished Eyes: icteric sclera Cardiovascular: regular rate and rhythym, no murmur, rub, or gallop Respiratory: no respiratory distress, no rales or rhonchi Gastrointestinal: soft, non-tender abdomen, no palpable masses, hepatosplenomegally ICD10 Worksheet Patient Problems: Problems Problem Status Onset Opiate withdrawal Chronic LUQ abdominal pain Acute H/O colonoscopy with polypectomy Acute Alcohol withdrawal Acute Elevated liver function tests Acute Hypokalemia Acute Cirrhosis of liver Acute
--- NOTE | 2017-09-30 12:30 | ASMTCMCOM ---
CM Note CM Note Notes: Pt still not ready for DC but is improving. Updated pt's sister Ghada. She indicated that pt may no longer have a home b/c he is past due on his rent. Ghada and her brother will be looking into that. PT/OT are recommedning SNF. [facility] indicates they are interested but have not been able to assess due to pt's encephalopathy. [facility] unable to take. [facility] not responded yet. CM to follow. Date Signed: 09/30/2017 12:29 PM Electronically Signed By:Gabrielle Soriano LCSW
[2017-10-01] MEDS: POTASSIUM Cl (KCl) 20 MEQ in D5W 1,000 ML IV SCH ×2 (02:58→11:11)
[2017-10-01] MEDS ORDERED: POTASSIUM CL 10 MEQ TAB PO ONE ×2 (07:30→20:54)
[2017-10-01] MEDS: LACTULOSE 20 GM/30 ML UDCUP PO SCH ×4 (07:50→20:10)
[2017-10-01] MEDS: methylPREDNISolone SOD SUCC 40 MG/ML VIAL IVP SCH (07:51)
[2017-10-01] MEDS: THIAMINE HCL 100 MG TAB PO SCH (07:51)
[2017-10-01] MEDS: RIFAXIMIN 550 MG TAB PO SCH ×2 (07:51→20:09)
[2017-10-01] MEDS: PANTOPRAZOLE SODIUM 40 MG VIAL IVP SCH ×2 (07:52→20:09)
--- NOTE | 2017-10-01 11:00 | SOAPPROG ---
SOAP Progress Note Assessment/Plan: Assessment: Alcoholic liver disease with severe alcoholic hepatitis. Awating MRCP to rule out biliary obstruction. Plan: Continue on Lactulose and steroids Will check MRCP 10/01/17 11:02 Subjective: CC: GI Bleed, gastritis. Abnormal LFT's Patient with decreased MS, asleep, not verbal Objective: Vital Signs Temp Pulse Resp BP Pulse Ox 36.6 C 73 15 109/72 94 10/01/17 07:32 10/01/17 07:32 10/01/17 07:32 10/01/17 07:32 10/01/17 07:32 Laboratory Results 09/30/17 07:59 10/01/17 10:20 09/30/17 10/01/17 10/02/17 05:59 05:59 06:59 Intake Total 2469 2612 Output Total 1900 3150 350 Balance 569 -538 -350 PT 18.3 SEC (12.0-15.0) H 09/30/17 07:59 INR 1.50 (0.83-1.16) H 09/30/17 07:59 Generic Name Dose Route Start Last Admin Trade Name Freq PRN Reason Stop Dose Admin Enoxaparin Sodium 40 mg 09/19/17 12:15 09/24/17 10:31 Lovenox SC 03/18/18 12:14 40 mg DAILY JUDY Administration Potassium Chloride 20 meq/ 1,000 mls @ 125 mls/hr 09/27/17 07:30 10/01/17 02: 58 Dextrose IV 03/26/18 07:29 1,000 mls CONT JUDY Administration Lactulose 20 gm 09/29/17 11:15 10/01/17 07:50 Cephulac PO 03/28/18 11:14 20 gm TID JUDY Administration Methylprednisolone Sodium Succinate 40 mg 09/28/17 18:00 10/01/17 07:51 Solu-Medrol IVP 03/27/18 17:59 40 mg DAILY JUDY Administration Ondansetron HCl 4 mg 09/19/17 03:37 Zofran IVP 03/18/18 03:36 Q4HRS PRN Nausea/Vomiting, Can't Take PO Pantoprazole Sodium 40 mg 09/24/17 13:00 10/01/17 07:52 Protonix IVP 03/23/18 12:59 40 mg BID JUDY Administration Potassium Chloride 1 dose 09/22/17 12:14 Protocol Potassium MISC 03/21/18 12:13 AD PRN Pt on Electrolyte Protocol Protocol Rifaximin 550 mg 09/27/17 09:00 10/01/17 07:51 Xifaxan PO 10/27/17 08:59 550 mg BID JUDY Administration Protocol Thiamine HCl 100 mg 09/28/17 09:00 10/01/17 07:51 Vitamin B-1 PO 03/27/18 08:59 100 mg DAILY JUDY Administration Discontinued Medications Generic Name Dose Route Start Last Admin Trade Name Freq PRN Reason Stop Dose Admin Calcium Gluconate 1 dose 09/19/17 03:51 Protocol Calcium IV 03/18/18 03:50 AD PRN Pt on Electrolyte Protocol Protocol Chlordiazepoxide HCl 25 mg 09/19/17 09:00 09/20/17 09:48 Librium PO 03/18/18 08:59 25 mg TID JUDY Administration Chlordiazepoxide HCl 50 mg 09/20/17 10:39 09/22/17 09:28 Librium PO 03/18/18 08:59 50 mg TID JUDY Administration Chlordiazepoxide HCl 25 mg 09/22/17 10:08 09/24/17 10:31 Librium PO 03/18/18 08:59 25 mg TID JUDY Administration Ertapenem 1 gm 09/26/17 09:00 09/26/17 08:44 Invanz IV 10/26/17 08:59 1 gm DAILY JUDY Administration Protocol Ethyl Alcohol 50 ml 09/20/17 18:00 09/20/17 21:39 Vodka PO 03/19/18 17:59 50 ml DAILY AT 6PM JUDY Administration Ethyl Alcohol 50 ml 09/21/17 16:00 09/22/17 09:56 Vodka PO 03/20/18 15:59 Not Given TID JUDY Sodium Chloride 2,000 mls @ 0 mls/hr 09/19/17 01:49 09/19/17 01:52 Ns IV 09/19/17 01:50 2,000 mls ONCE ONE Administration Wide Open Potassium Chloride 100 mls @ 100 mls/hr 09/19/17 02:48 09/19/17 07:41 Potassium Cl 10 Meq (Premix) IV 09/19/17 03:47 100 mls EDNOW ONE Administration Potassium Chloride 10 meq/ 100 mls @ 100 mls/hr 09/19/17 03:30 09/19/17 03:42 Sodium Chloride IV 09/19/17 04:29 100 mls EDNOW ONE Administration Thiamine HCl 500 mg/ Sodium 505 mls @ 505 mls/hr 09/19/17 04:00 09/20/17 09: 42 Chloride IV 09/22/17 03:59 505 mls DAILY JUDY Administration Magnesium Sulfate/Dextrose 100 mls @ 100 mls/hr 09/19/17 07:35 09/19/17 07:51 Magnesium Sulf 1 Gm (Premix) IV 09/19/17 08:34 100 mls ONCE ONE Administration Calcium Gluconate 1 gm/ 60 mls @ 120 mls/hr 09/19/17 08:00 09/19/17 08:01 Dextrose IV 09/19/17 08:29 60 mls ONCE ONE Administration Potassium Chloride 10 meq/ 100 mls @ 100 mls/hr 09/19/17 14:45 09/19/17 19:13 Sodium Chloride IV 09/19/17 18:44 100 mls Q1H JUDY Administration Potassium Chloride 10 meq/ 100 mls @ 50 mls/hr 09/20/17 02:00 09/20/17 03:43 Sodium Chloride IV 09/20/17 05:59 100 mls Q2H JUDY Administration Potassium Phosphate 10 mmol/ 253.3333 mls @ 42.222 mls/hr 09/20/17 12:00 10:58 Sodium Chloride IV 09/20/17 17:59 253.3333 mls ONCE@12 ONE Administration Magnesium Sulfate/Dextrose 100 mls @ 100 mls/hr 09/20/17 07:22 09/20/17 08:39 Magnesium Sulf 1 Gm (Premix) IV 09/20/17 08:21 100 mls ONCE ONE Administration Calcium Gluconate 1 gm/ 60 mls @ 120 mls/hr 09/20/17 08:00 09/20/17 07:57 Dextrose IV 09/20/17 08:29 60 mls ONCE ONE Administration Potassium Chloride 10 meq/ 100 mls @ 100 mls/hr 09/20/17 08:00 09/20/17 12:23 Sodium Chloride IV 09/20/17 11:59 100 mls Q1H UJDY Administration Potassium Chloride 10 meq/ 100 mls @ 100 mls/hr 09/20/17 21:45 09/21/17 00:50 Sodium Chloride IV 09/21/17 00:44 100 mls Q1H JUDY Administration Magnesium Sulfate/Dextrose 100 mls @ 100 mls/hr 09/21/17 07:30 09/21/17 07:56 Magnesium Sulf 1 Gm (Premix) IV 09/21/17 08:29 100 mls ONCE ONE Administration Potassium Phosphate 10 mmol/ 253.3333 mls @ 42.222 mls/hr 09/21/17 12:00 12:22 Dextrose IV 09/21/17 17:59 253.3333 mls ONCE@12 ONE Administration Potassium Chloride 10 meq/ 100 mls @ 100 mls/hr 09/21/17 08:00 09/21/17 10:48 Sodium Chloride IV 09/21/17 09:59 100 mls Q1H JUDY Administration Potassium Chloride 10 meq/ 100 mls @ 100 mls/hr 09/21/17 22:45 09/22/17 02:02 Sodium Chloride IV 09/22/17 01:44 100 mls Q1H JUDY Administration Magnesium Sulfate/Dextrose 100 mls @ 100 mls/hr 09/22/17 11:43 09/22/17 12:56 Magnesium Sulf 1 Gm (Premix) IV 09/22/17 12:42 100 mls ONCE ONE Administration Calcium Gluconate 1 gm/ 60 mls @ 120 mls/hr 09/22/17 12:00 09/22/17 12:16 Dextrose IV 09/22/17 12:29 60 mls ONCE ONE Administration Potassium Chloride 10 meq/ 100 mls @ 50 mls/hr 09/22/17 12:15 09/22/17 17:00 Sodium Chloride IV 09/22/17 16:14 100 mls Q2H JUDY Administration Potassium Chloride/Dextrose/Sod Cl 1,000 mls @ 100 mls/hr 09/23/17 17:30 11/09 03:39 D5w Ns W/ 20 Kcl/L IV 03/22/18 17:29 1,000 mls CONT JUDY Administration Ceftriaxone Sodium/Dextrose 50 mls @ 100 mls/hr 09/24/17 13:45 09/25/17 10:44 Rocephin 1 Gm (Premix) IV 10/24/17 13:44 50 mls DAILY JUDY Administration Sodium Chloride 500 mls @ 1,500 mls/hr 09/24/17 15:59 09/24/17 16:00 Ns IV 09/24/17 16:18 500 mls ONCE ONE Administration Lactated Ringer's 500 mls @ 0 mls/hr 09/25/17 09:33 Lr IV 09/25/17 10:33 PRN PRN PACU, Nausea/Vomiting Post-Op Wide Open Potassium Chloride/Dextrose/Sod Cl 1,000 mls @ 125 mls/hr 09/25/17 11:45 12/09 20:03 D5w 1/2 Ns W/ 20 Kcl/L IV 03/24/18 11:44 1,000 mls CONT JUDY Administration Thiamine HCl 100 mg/ Sodium 51 mls @ 102 mls/hr 09/25/17 12:00 09/27/17 11:43 Chloride IV 09/27/17 20:00 51 mls DAILY JUDY Administration Potassium Chloride 10 meq/ 100 mls @ 100 mls/hr 09/26/17 08:30 09/26/17 13:02 Sodium Chloride IV 09/26/17 11:29 100 mls Q1H JUDY Administration Potassium Chloride 10 meq/ 100 mls @ 50 mls/hr 09/26/17 19:38 09/26/17 22:08 Sodium Chloride IV 09/26/17 23:37 100 mls Q2H JUDY Administration Potassium Chloride 10 meq/ 100 mls @ 100 mls/hr 09/27/17 21:45 09/28/17 00:43 Sodium Chloride IV 09/28/17 00:44 100 mls Q1H JUDY Administration Potassium Chloride 10 meq/ 100 mls @ 100 mls/hr 09/28/17 20:00 09/28/17 22:31 Sodium Chloride IV 09/28/17 22:59 100 mls Q1H JUDY Administration Iopamidol Confirm 09/24/17 20:28 Isovue-300 Administered 09/24/17 20:29 Dose 100 ml .ROUTE .STK-MED ONE Lorazepam 1 mg 09/19/17 01:49 09/19/17 01:56 Ativan Injection IVP 09/19/17 01:50 1 mg EDNOW ONE Administration Lorazepam 0 mg 09/19/17 03:54 09/21/17 08:36 Ativan Injection IVP 03/18/18 03:53 2 mg Q1H PRN Administration Alcohol Withdrawal w/IV access Protocol Lorazepam 0.5 mg 09/24/17 11:03 Ativan PO 03/23/18 11:02 Q6HRS PRN Anxiety, Able to Take PO Magnesium Sulfate 1 dose 09/19/17 03:51 Protocol Magnesium IV 03/18/18 03:50 AD PRN Pt on Electrolyte Protocol Protocol Naloxone HCl 0.1 mg 09/25/17 09:33 Narcan IVP 09/25/17 10:33 Q2M PRN PACU Resp Rate <10/min Ondansetron HCl Confirm 09/19/17 01:43 Zofran Administered 09/19/17 01:44 Dose 4 mg .ROUTE .STK-MED ONE Ondansetron HCl 4 mg 09/19/17 01:49 09/19/17 01:52 Zofran IVP 09/19/17 01:50 4 mg EDNOW ONE Administration Potassium Chloride 40 meq 09/19/17 03:09 09/19/17 03:44 Klor-Con PO 09/19/17 03:10 Not Given EDNOW ONE Potassium Chloride Confirm 09/19/17 03:09 Potassium Chloride Oral Liquid Administered 09/19/17 03:10 Dose 40 meq .ROUTE .STK-MED ONE Potassium Chloride 40 meq 09/19/17 03:16 09/19/17 03:17 Potassium Chloride Oral Liquid PO 09/19/17 03:17 40 meq EDNOW ONE Administration Potassium Chloride 1 dose 09/19/17 03:51 Protocol Potassium MISC 03/18/18 03:50 AD PRN Pt on Electrolyte Protocol Protocol Potassium Chloride 40 meq 09/19/17 07:45 09/19/17 08:02 Potassium Chloride Oral Liquid PO 09/19/17 07:46 40 meq ONCE ONE Administration Potassium Chloride 40 meq 09/20/17 17:30 09/20/17 18:10 Potassium Chloride Oral Liquid PO 09/20/17 17:31 40 meq ONCE ONE Administration Potassium Chloride 20 meq 09/21/17 14:15 09/21/17 14:22 Klor-Con PO 09/21/17 14:16 20 meq ONCE ONE Administration Potassium Chloride 20 meq 09/22/17 19:56 09/22/17 20:15 Klor-Con PO 09/22/17 19:57 20 meq ONCE ONE Administration Protocol Potassium Chloride 10 - 40 meq 09/23/17 06:18 09/23/17 06:37 Klor-Con PO 09/23/17 06:19 20 meq ONCE ONE Administration Protocol Potassium Chloride 10 - 40 meq 09/24/17 08:51 09/24/17 10:33 Klor-Con PO 09/24/17 08:52 10 meq ONCE ONE Administration Protocol Potassium Chloride 10 - 40 meq 09/27/17 09:26 09/27/17 09:39 Klor-Con PO 09/27/17 09:27 10 meq ONCE ONE Administration Protocol Potassium Chloride 10 meq 09/30/17 07:36 09/30/17 09:08 Klor-Con PO 09/30/17 07:37 10 meq ONCE ONE Administration Protocol Potassium Chloride 10 - 40 meq 09/30/17 20:42 09/30/17 20:48 Klor-Con PO 09/30/17 20:43 10 meq ONCE ONE Administration Protocol Potassium Chloride 10 meq 10/01/17 07:30 10/01/17 07:51 Klor-Con PO 10/01/17 07:31 10 meq ONCE ONE Administration Protocol Potassium Phosphate 1 dose 09/19/17 03:51 Protocol K Phosphate IV 03/18/18 03:50 AD PRN Pt on Electrolyte Protocol Protocol Propofol Confirm 09/25/17 09:12 Diprivan 10 Mg/Ml (Premix) Administered 09/25/17 09:13 Dose 500 mg IV .STK-MED ONE Thiamine HCl 500 mg 09/21/17 09:00 09/21/17 07:58 Vitamin B-1 PO 09/22/17 03:50 500 mg DAILY JUDY Administration Thiamine HCl 100 mg 09/22/17 14:00 09/25/17 10:45 Vitamin B-1 PO 03/21/18 13:59 Not Given DAILY JUDY Physical Exam - Physical Exam General Appearance: unresponsive, other (asleep, non-verbal) EENT: scleral icterus (R) Respiratory: lungs clear, normal breath sounds Cardiac/Chest: regular rate, rhythm Abdomen: normal bowel sounds, non-tender Skin: jaundice ICD10 Worksheet Patient Problems: Problems Problem Status Onset Alcohol withdrawal Acute Cirrhosis of liver Acute Hypokalemia Acute Elevated liver function tests Acute H/O colonoscopy with polypectomy Acute LUQ abdominal pain Acute Opiate withdrawal Chronic
--- NOTE | 2017-10-01 11:53 | HOSPPROG ---
Hospitalist Progress Note Assessment/Plan: 67-year-old alcoholic is admitted through the [facility] with acute alcohol withdrawal. He does have a history of alcoholic liver disease with his last total bili prior to this admission around 5. He continues to be quite confused. His sister has been designated as his decision maker. # acute encephalopathy - likely etOH VS HE; maybe better today - continue PO lactulose and xifaxan # acute etOH w/d - seems resolved, stable off CIWA # acute hepatitis - suspect this is d/t etOH; also consider biliary pathology - doubt cholecystitis given no Nolan's, afebrile, normal WBC - Maddrey's DF = 38 - currently on steroids - still need MRCP when he can tolerate it; will d/w GI # diffuse weakness - suspect related to above # gastirits/melena s/p EGD - protonix IV bid Subjective: MRCP non-diagnostic; no abd pain today; does not know the current date Objective: Vital Signs Temp Pulse Resp BP Pulse Ox 36.6 C 73 15 109/72 94 10/01/17 07:32 10/01/17 07:32 10/01/17 07:32 10/01/17 07:32 10/01/17 07:32 Laboratory Results 09/30/17 07:59 10/01/17 10:20 09/30/17 10/01/17 10/02/17 05:59 05:59 06:59 Intake Total 2469 2612 Output Total 1900 3150 350 Balance 569 -538 -350 PT 18.3 SEC (12.0-15.0) H 09/30/17 07:59 INR 1.50 (0.83-1.16) H 09/30/17 07:59 high risk - Physical Exam Constitutional: unkempt Eyes: icteric sclera Ears, Nose, Mouth, Throat: hearing normal Cardiovascular: regular rate and rhythym, no murmur, rub, or gallop Respiratory: no respiratory distress, no rales or rhonchi Gastrointestinal: soft, non-tender abdomen, no palpable masses, hepatosplenomegally ICD10 Worksheet Patient Problems: Problems Problem Status Onset Opiate withdrawal Chronic LUQ abdominal pain Acute H/O colonoscopy with polypectomy Acute Alcohol withdrawal Acute Elevated liver function tests Acute Hypokalemia Acute Cirrhosis of liver Acute
--- NOTE | 2017-10-01 14:46 | ASMTCMCOM ---
CM Note CM Note Notes: [facility] Ro[facility] met with pt today and approved taking him. [facility] Faxed updated therapy notes and PASRR. VIRIDIANA to follow. Date Signed: 10/01/2017 02:45 PM Electronically Signed By:Gabrielle Soriano LCSW
[2017-10-02] MEDS ORDERED: POTASSIUM CL 10 MEQ TAB PO ONE (07:32)
[2017-10-02] MEDS: LACTULOSE 20 GM/30 ML UDCUP PO SCH ×3 (08:50→22:56)
[2017-10-02] MEDS: THIAMINE HCL 100 MG TAB PO SCH (08:51)
[2017-10-02] MEDS: predniSONE 20 MG TAB PO SCH (08:51)
[2017-10-02] MEDS: PANTOPRAZOLE SODIUM 40 MG VIAL IVP SCH (08:51)
[2017-10-02] MEDS: RIFAXIMIN 550 MG TAB PO SCH ×2 (08:51→20:52)
--- NOTE | 2017-10-02 11:53 | HOSPPROG ---
Hospitalist Progress Note Assessment/Plan: 67-year-old alcoholic is admitted through the [facility] with acute alcohol withdrawal. He does have a history of alcoholic liver disease with his last total bili prior to this admission around 5. He continues to be quite confused. His sister has been designated as his decision maker. # acute encephalopathy - likely etOH VS HE; very slow improvement - continue PO lactulose and xifaxan # acute etOH w/d - seems resolved, stable off CIWA # acute hepatitis - suspect this is d/t etOH; also consider biliary pathology - doubt cholecystitis given no Nolan's, afebrile, normal WBC - Maddrey's DF = 38 - currently on steroids - pattern slightly abnormal for etOH hepatitis with elevated alk phos; also? cholecystitis on US - surgery has seen and did not recommend surgical intervention - GI to see today and reconsider ERCP or additional imaging; HIDA? he did not cooperate with MRCP # diffuse weakness - suspect related to above # gastirits/melena s/p EGD - protonix PO bid Subjective: still confused; slightly better today per RN Objective: Vital Signs Temp Pulse Resp BP Pulse Ox 36.6 C 78 16 133/86 H 92 10/02/17 08:00 10/02/17 08:00 10/02/17 08:00 10/02/17 08:00 10/02/17 08:00 Laboratory Results 09/30/17 07:59 10/02/17 04:38 10/01/17 10/02/17 10/03/17 04:59 05:59 05:59 Intake Total Output Total Balance PT 18.3 SEC (12.0-15.0) H 09/30/17 07:59 INR 1.50 (0.83-1.16) H 09/30/17 07:59 high risk - Physical Exam Constitutional: uncomfortable Eyes: icteric sclera Ears, Nose, Mouth, Throat: hearing normal Cardiovascular: regular rate and rhythym, no murmur, rub, or gallop Respiratory: no rales or rhonchi, clear to auscultation Gastrointestinal: soft, non-tender abdomen, hepatosplenomegally, No nolan's sign ICD10 Worksheet Patient Problems: Problems Problem Status Onset Opiate withdrawal Chronic LUQ abdominal pain Acute H/O colonoscopy with polypectomy Acute Alcohol withdrawal Acute Elevated liver function tests Acute Hypokalemia Acute Cirrhosis of liver Acute
--- NOTE | 2017-10-02 12:45 | SOAPPROG ---
SOAP Progress Note Assessment/Plan: Assessment: 67 year old male, alcoholic with severe alcoholic hepatitis and fatty liver. Patient with mental status changes on Lactulose and Rifaximin. MRCP was unsuccessful due to motion artifact. However, prior imaging (U/S and CT Scan) without evidence of Gallstones or bile duct obstruction (no bile duct dilation). Clinical picture most consistent with alcoholic hepatitis and fatty liver. Patient started on Prednisone for DF > 32. Recent UGI bleed secondary to gastritis without the finding of varices. No Ascites on imaging. Plan: 1. Continue on Lactulose and Rifaximin 2. Continue Prednisone with taper. Taper by 5 mg every 7 days until off 3. Will sign off, please call with further questions 10/02/17 13:38 Subjective: CC: GIB and Jaundice More awake today but still confused. Jaundice Objective: Vital Signs Temp Pulse Resp BP Pulse Ox 36.6 C 78 16 133/86 H 92 10/02/17 08:00 10/02/17 08:00 10/02/17 08:00 10/02/17 08:00 10/02/17 08:00 Laboratory Results 09/30/17 07:59 10/02/17 04:38 10/01/17 10/02/17 10/03/17 04:59 05:59 05:59 Intake Total Output Total Balance PT 18.3 SEC (12.0-15.0) H 09/30/17 07:59 INR 1.50 (0.83-1.16) H 09/30/17 07:59 Generic Name Dose Route Start Last Admin Trade Name Freq PRN Reason Stop Dose Admin Enoxaparin Sodium 40 mg 09/19/17 12:15 09/24/17 10:31 Lovenox SC 03/18/18 12:14 40 mg DAILY JUDY Administration Lactulose 20 gm 09/29/17 11:15 10/02/17 08:50 Cephulac PO 03/28/18 11:14 20 gm TID JUDY Administration Ondansetron HCl 4 mg 09/19/17 03:37 Zofran IVP 03/18/18 03:36 Q4HRS PRN Nausea/Vomiting, Can't Take PO Pantoprazole Sodium 40 mg 10/02/17 21:00 Protonix PO 03/31/18 20:59 BID JUDY Potassium Chloride 1 dose 09/22/17 12:14 Protocol Potassium MISC 03/21/18 12:13 AD PRN Pt on Electrolyte Protocol Protocol Prednisone 40 mg 10/02/17 09:00 10/02/17 08:51 Prednisone PO 03/31/18 08:59 40 mg DAILY JUDY Administration Rifaximin 550 mg 09/27/17 09:00 10/02/17 08:51 Xifaxan PO 10/27/17 08:59 550 mg BID JUDY Administration Protocol Thiamine HCl 100 mg 09/28/17 09:00 10/02/17 08:51 Vitamin B-1 PO 03/27/18 08:59 100 mg DAILY JUDY Administration Discontinued Medications Generic Name Dose Route Start Last Admin Trade Name Freq PRN Reason Stop Dose Admin Calcium Gluconate 1 dose 09/19/17 03:51 Protocol Calcium IV 03/18/18 03:50 AD PRN Pt on Electrolyte Protocol Protocol Chlordiazepoxide HCl 25 mg 09/19/17 09:00 09/20/17 09:48 Librium PO 03/18/18 08:59 25 mg TID JUDY Administration Chlordiazepoxide HCl 50 mg 09/20/17 10:39 09/22/17 09:28 Librium PO 03/18/18 08:59 50 mg TID JUDY Administration Chlordiazepoxide HCl 25 mg 09/22/17 10:08 09/24/17 10:31 Librium PO 03/18/18 08:59 25 mg TID JUDY Administration Ertapenem 1 gm 09/26/17 09:00 09/26/17 08:44 Invanz IV 10/26/17 08:59 1 gm DAILY JUDY Administration Protocol Ethyl Alcohol 50 ml 09/20/17 18:00 09/20/17 21:39 Vodka PO 03/19/18 17:59 50 ml DAILY AT 6PM JUDY Administration Ethyl Alcohol 50 ml 09/21/17 16:00 09/22/17 09:56 Vodka PO 03/20/18 15:59 Not Given TID JUDY Sodium Chloride 2,000 mls @ 0 mls/hr 09/19/17 01:49 09/19/17 01:52 Ns IV 09/19/17 01:50 2,000 mls ONCE ONE Administration Wide Open Potassium Chloride 100 mls @ 100 mls/hr 09/19/17 02:48 09/19/17 07:41 Potassium Cl 10 Meq (Premix) IV 09/19/17 03:47 100 mls EDNOW ONE Administration Potassium Chloride 10 meq/ 100 mls @ 100 mls/hr 09/19/17 03:30 09/19/17 03:42 Sodium Chloride IV 09/19/17 04:29 100 mls EDNOW ONE Administration Thiamine HCl 500 mg/ Sodium 505 mls @ 505 mls/hr 09/19/17 04:00 09/20/17 09: 42 Chloride IV 09/22/17 03:59 505 mls DAILY JUDY Administration Magnesium Sulfate/Dextrose 100 mls @ 100 mls/hr 09/19/17 07:35 09/19/17 07:51 Magnesium Sulf 1 Gm (Premix) IV 09/19/17 08:34 100 mls ONCE ONE Administration Calcium Gluconate 1 gm/ 60 mls @ 120 mls/hr 09/19/17 08:00 09/19/17 08:01 Dextrose IV 09/19/17 08:29 60 mls ONCE ONE Administration Potassium Chloride 10 meq/ 100 mls @ 100 mls/hr 09/19/17 14:45 09/19/17 19:13 Sodium Chloride IV 09/19/17 18:44 100 mls Q1H JUDY Administration Potassium Chloride 10 meq/ 100 mls @ 50 mls/hr 09/20/17 02:00 09/20/17 03:43 Sodium Chloride IV 09/20/17 05:59 100 mls Q2H JUDY Administration Potassium Phosphate 10 mmol/ 253.3333 mls @ 42.222 mls/hr 09/20/17 12:00 10:58 Sodium Chloride IV 09/20/17 17:59 253.3333 mls ONCE@12 ONE Administration Magnesium Sulfate/Dextrose 100 mls @ 100 mls/hr 09/20/17 07:22 09/20/17 08:39 Magnesium Sulf 1 Gm (Premix) IV 09/20/17 08:21 100 mls ONCE ONE Administration Calcium Gluconate 1 gm/ 60 mls @ 120 mls/hr 09/20/17 08:00 09/20/17 07:57 Dextrose IV 09/20/17 08:29 60 mls ONCE ONE Administration Potassium Chloride 10 meq/ 100 mls @ 100 mls/hr 09/20/17 08:00 09/20/17 12:23 Sodium Chloride IV 09/20/17 11:59 100 mls Q1H JUDY Administration Potassium Chloride 10 meq/ 100 mls @ 100 mls/hr 09/20/17 21:45 09/21/17 00:50 Sodium Chloride IV 09/21/17 00:44 100 mls Q1H JUDY Administration Magnesium Sulfate/Dextrose 100 mls @ 100 mls/hr 09/21/17 07:30 09/21/17 07:56 Magnesium Sulf 1 Gm (Premix) IV 09/21/17 08:29 100 mls ONCE ONE Administration Potassium Phosphate 10 mmol/ 253.3333 mls @ 42.222 mls/hr 09/21/17 12:00 12:22 Dextrose IV 09/21/17 17:59 253.3333 mls ONCE@12 ONE Administration Potassium Chloride 10 meq/ 100 mls @ 100 mls/hr 09/21/17 08:00 09/21/17 10:48 Sodium Chloride IV 09/21/17 09:59 100 mls Q1H JUDY Administration Potassium Chloride 10 meq/ 100 mls @ 100 mls/hr 09/21/17 22:45 09/22/17 02:02 Sodium Chloride IV 09/22/17 01:44 100 mls Q1H JUDY Administration Magnesium Sulfate/Dextrose 100 mls @ 100 mls/hr 09/22/17 11:43 09/22/17 12:56 Magnesium Sulf 1 Gm (Premix) IV 09/22/17 12:42 100 mls ONCE ONE Administration Calcium Gluconate 1 gm/ 60 mls @ 120 mls/hr 09/22/17 12:00 09/22/17 12:16 Dextrose IV 09/22/17 12:29 60 mls ONCE ONE Administration Potassium Chloride 10 meq/ 100 mls @ 50 mls/hr 09/22/17 12:15 09/22/17 17:00 Sodium Chloride IV 09/22/17 16:14 100 mls Q2H JUDY Administration Potassium Chloride/Dextrose/Sod Cl 1,000 mls @ 100 mls/hr 09/23/17 17:30 11/09 03:39 D5w Ns W/ 20 Kcl/L IV 03/22/18 17:29 1,000 mls CONT JUDY Administration Ceftriaxone Sodium/Dextrose 50 mls @ 100 mls/hr 09/24/17 13:45 09/25/17 10:44 Rocephin 1 Gm (Premix) IV 10/24/17 13:44 50 mls DAILY JUDY Administration Sodium Chloride 500 mls @ 1,500 mls/hr 09/24/17 15:59 09/24/17 16:00 Ns IV 09/24/17 16:18 500 mls ONCE ONE Administration Lactated Ringer's 500 mls @ 0 mls/hr 09/25/17 09:33 Lr IV 09/25/17 10:33 PRN PRN PACU, Nausea/Vomiting Post-Op Wide Open Potassium Chloride/Dextrose/Sod Cl 1,000 mls @ 125 mls/hr 09/25/17 11:45 12/09 20:03 D5w 1/2 Ns W/ 20 Kcl/L IV 03/24/18 11:44 1,000 mls CONT JUDY Administration Thiamine HCl 100 mg/ Sodium 51 mls @ 102 mls/hr 09/25/17 12:00 09/27/17 11:43 Chloride IV 09/27/17 20:00 51 mls DAILY JUDY Administration Potassium Chloride 10 meq/ 100 mls @ 100 mls/hr 09/26/17 08:30 09/26/17 13:02 Sodium Chloride IV 09/26/17 11:29 100 mls Q1H JUDY Administration Potassium Chloride 10 meq/ 100 mls @ 50 mls/hr 09/26/17 19:38 09/26/17 22:08 Sodium Chloride IV 09/26/17 23:37 100 mls Q2H JUDY Administration Potassium Chloride 20 meq/ 1,000 mls @ 125 mls/hr 09/27/17 07:30 10/01/17 11: 11 Dextrose IV 03/26/18 07:29 1,000 mls CONT JUDY Administration Potassium Chloride 10 meq/ 100 mls @ 100 mls/hr 09/27/17 21:45 09/28/17 00:43 Sodium Chloride IV 09/28/17 00:44 100 mls Q1H JUDY Administration Potassium Chloride 10 meq/ 100 mls @ 100 mls/hr 09/28/17 20:00 09/28/17 22:31 Sodium Chloride IV 09/28/17 22:59 100 mls Q1H JUDY Administration Iopamidol Confirm 09/24/17 20:28 Isovue-300 Administered 09/24/17 20:29 Dose 100 ml .ROUTE .STK-MED ONE Lorazepam 1 mg 09/19/17 01:49 09/19/17 01:56 Ativan Injection IVP 09/19/17 01:50 1 mg EDNOW ONE Administration Lorazepam 0 mg 09/19/17 03:54 09/21/17 08:36 Ativan Injection IVP 03/18/18 03:53 2 mg Q1H PRN Administration Alcohol Withdrawal w/IV access Protocol Lorazepam 0.5 mg 09/24/17 11:03 Ativan PO 03/23/18 11:02 Q6HRS PRN Anxiety, Able to Take PO Magnesium Sulfate 1 dose 09/19/17 03:51 Protocol Magnesium IV 03/18/18 03:50 AD PRN Pt on Electrolyte Protocol Protocol Methylprednisolone Sodium Succinate 40 mg 09/28/17 18:00 10/01/17 07:51 Solu-Medrol IVP 03/27/18 17:59 40 mg DAILY JUDY Administration Naloxone HCl 0.1 mg 09/25/17 09:33 Narcan IVP 09/25/17 10:33 Q2M PRN PACU Resp Rate <10/min Ondansetron HCl Confirm 09/19/17 01:43 Zofran Administered 09/19/17 01:44 Dose 4 mg .ROUTE .STK-MED ONE Ondansetron HCl 4 mg 09/19/17 01:49 09/19/17 01:52 Zofran IVP 09/19/17 01:50 4 mg EDNOW ONE Administration Pantoprazole Sodium 40 mg 09/24/17 13:00 10/02/17 08:51 Protonix IVP 03/23/18 12:59 40 mg BID JUDY Administration Potassium Chloride 40 meq 09/19/17 03:09 09/19/17 03:44 Klor-Con PO 09/19/17 03:10 Not Given EDNOW ONE Potassium Chloride Confirm 09/19/17 03:09 Potassium Chloride Oral Liquid Administered 09/19/17 03:10 Dose 40 meq .ROUTE .STK-MED ONE Potassium Chloride 40 meq 09/19/17 03:16 09/19/17 03:17 Potassium Chloride Oral Liquid PO 09/19/17 03:17 40 meq EDNOW ONE Administration Potassium Chloride 1 dose 09/19/17 03:51 Protocol Potassium MISC 03/18/18 03:50 AD PRN Pt on Electrolyte Protocol Protocol Potassium Chloride 40 meq 09/19/17 07:45 09/19/17 08:02 Potassium Chloride Oral Liquid PO 09/19/17 07:46 40 meq ONCE ONE Administration Potassium Chloride 40 meq 09/20/17 17:30 09/20/17 18:10 Potassium Chloride Oral Liquid PO 09/20/17 17:31 40 meq ONCE ONE Administration Potassium Chloride 20 meq 09/21/17 14:15 09/21/17 14:22 Klor-Con PO 09/21/17 14:16 20 meq ONCE ONE Administration Potassium Chloride 20 meq 09/22/17 19:56 09/22/17 20:15 Klor-Con PO 09/22/17 19:57 20 meq ONCE ONE Administration Protocol Potassium Chloride 10 - 40 meq 09/23/17 06:18 09/23/17 06:37 Klor-Con PO 09/23/17 06:19 20 meq ONCE ONE Administration Protocol Potassium Chloride 10 - 40 meq 09/24/17 08:51 09/24/17 10:33 Klor-Con PO 09/24/17 08:52 10 meq ONCE ONE Administration Protocol Potassium Chloride 10 - 40 meq 09/27/17 09:26 09/27/17 09:39 Klor-Con PO 09/27/17 09:27 10 meq ONCE ONE Administration Protocol Potassium Chloride 10 meq 09/30/17 07:36 09/30/17 09:08 Klor-Con PO 09/30/17 07:37 10 meq ONCE ONE Administration Protocol Potassium Chloride 10 - 40 meq 09/30/17 20:42 09/30/17 20:48 Klor-Con PO 09/30/17 20:43 10 meq ONCE ONE Administration Protocol Potassium Chloride 10 meq 10/01/17 07:30 10/01/17 07:51 Klor-Con PO 10/01/17 07:31 10 meq ONCE ONE Administration Protocol Potassium Chloride 10 - 40 meq 10/01/17 20:54 10/01/17 22:47 Klor-Con PO 10/01/17 20:55 10 meq ONCE ONE Administration Protocol Potassium Chloride 10 - 40 meq 10/02/17 07:32 10/02/17 08:50 Klor-Con PO 10/02/17 07:33 30 meq ONCE ONE Administration Protocol Potassium Phosphate 1 dose 09/19/17 03:51 Protocol K Phosphate IV 03/18/18 03:50 AD PRN Pt on Electrolyte Protocol Protocol Propofol Confirm 09/25/17 09:12 Diprivan 10 Mg/Ml (Premix) Administered 09/25/17 09:13 Dose 500 mg IV .STK-MED ONE Thiamine HCl 500 mg 09/21/17 09:00 09/21/17 07:58 Vitamin B-1 PO 09/22/17 03:50 500 mg DAILY JUDY Administration Thiamine HCl 100 mg 09/22/17 14:00 09/25/17 10:45 Vitamin B-1 PO 03/21/18 13:59 Not Given DAILY JUDY Physical Exam - Physical Exam General Appearance: alert, other (confused) Respiratory: lungs clear Cardiac/Chest: regular rate, rhythm Abdomen: normal bowel sounds, non-tender, soft Skin: jaundice Neuro/Psych: no motor/sensory deficits ICD10 Worksheet Patient Problems: Problems Problem Status Onset Alcohol withdrawal Acute Cirrhosis of liver Acute Hypokalemia Acute Elevated liver function tests Acute H/O colonoscopy with polypectomy Acute LUQ abdominal pain Acute Opiate withdrawal Chronic
--- NOTE | 2017-10-02 18:02 | ASMTCMCOM ---
CM Note CM Note Notes: Plan is [facility] when medically ready. Pt's sister Ghada is pt's proxy and she has been updated daily. 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 correction plan is to move pt close to brother and sister if he approves. CM to follow. Date Signed: 10/02/2017 03:16 PM Electronically Signed By:Gabrielle Soriano LCSW
[2017-10-02] MEDS: PANTOPRAZOLE SODIUM 40 MG TAB PO SCH (20:52)
[2017-10-03] MEDS ORDERED: POTASSIUM CL 10 MEQ TAB PO ONE ×2 (00:11→04:30)
[2017-10-03 04:33] LABS: PLATELET COUNT 228 10^3/uL (150-400)
[2017-10-03] MEDS: LACTULOSE 20 GM/30 ML UDCUP PO SCH ×3 (07:49→20:31)
--- NOTE | 2017-10-03 09:22 | HOSPPROG ---
Hospitalist Progress Note Assessment/Plan: # acute encephalopathy - likely etOH VS HE; had some improvement per prev MD but status quo per nursing today - continue PO lactulose and xifaxan -he agreed to take meds at our visit -GI signed off # acute etOH w/d - stable off CIWA # acute hepatitis - suspect this is d/t etOH; unable to image adequately - Maddrey's DF = 38 - currently on steroids, taper per prev GI recs - pattern slightly abnormal for etOH hepatitis with elevated alk phos - surgery has seen and did not recommend surgical intervention for cholelithiasis - GI assistance appreciated, signed off # diffuse weakness - suspect related to above -PT/OT evals refused by patient # gastritis/melena s/p EGD - protonix PO bid Dispo- to [facility], CM assistance appreciated Sister is decision maker, I tried to call her-no answer and unable to leave a message. CM spoke with her earlier in day. Discussed with CM that a MOST or adv dir needs to be addressed, apparently brother coming from out of state soon NO PCP Subjective: Confused, refused AM meds per RN. Denies pain, CP/SOB. Didnt want to take meds bc gave him 'the sh....' Needs 1:1 assist for eating. Objective: Vital Signs Temp Pulse Resp BP Pulse Ox 98.4 F 64 17 118/65 90 L 10/03/17 07:22 10/03/17 07:22 10/03/17 07:22 10/03/17 07:22 10/03/17 07:22 Laboratory Results 10/03/17 04:08 10/03/17 04:08 10/01/17 10/02/17 10/03/17 10:59 11:59 11:59 Intake Total 200 Output Total 525 Balance -325 PT 18.3 SEC (12.0-15.0) H 09/30/17 07:59 INR 1.50 (0.83-1.16) H 09/30/17 07:59 - Time Spent With Patient Time Spent with Patient: greater than 35 minutes Time Spent with Patient: Greater than 35 minutes spent on this patients care, greater than 50% of time spent counseling, educating, and coordinating care regarding the above mentioned plan. - Physical Exam Constitutional: chronically ill appearing, unkempt Eyes: icteric sclera Ears, Nose, Mouth, Throat: moist mucous membranes, hearing normal Cardiovascular: regular rate and rhythym, No edema Respiratory: no respiratory distress, no rales or rhonchi, clear to auscultation Gastrointestinal: soft, non-tender abdomen, distension, No guarding, No rebound Skin: other (icteric) Psychiatric: poor insight, poor judgement, poor memory ICD10 Worksheet Patient Problems: Problems Problem Status Onset Alcohol withdrawal Acute Cirrhosis of liver Acute Hypokalemia Acute Elevated liver function tests Acute H/O colonoscopy with polypectomy Acute LUQ abdominal pain Acute Opiate withdrawal Chronic
[2017-10-03] MEDS: PANTOPRAZOLE SODIUM 40 MG TAB PO SCH ×3 (09:59→20:31)
[2017-10-03] MEDS: predniSONE 20 MG TAB PO SCH ×2 (09:59→14:27)
[2017-10-03] MEDS: RIFAXIMIN 550 MG TAB PO SCH ×3 (10:00→20:31)
[2017-10-03] MEDS: THIAMINE HCL 100 MG TAB PO SCH ×2 (10:00→14:31)
--- NOTE | 2017-10-03 13:57 | ASMTCMCOM ---
CM Note CM Note Notes: Clementine from [facility] here today to see pt. Updated PT note sent to . Pt may be ready for d/c tomorrow. Clementine to start insurance authorization from [facility] tomorrow. Pt's sister and medical proxy Ghada requesting a letter for pt's apartment agency with information regarding pt's recent hospitalization dates. Date Signed: 10/03/2017 01:57 PM Electronically Signed By:MIKA Gunn
[2017-10-04] MEDS ORDERED: POTASSIUM CL 10 MEQ TAB PO ONE ×2 (02:01→10:17)
--- NOTE | 2017-10-04 10:00 | HOSPPROG ---
Hospitalist Progress Note Assessment/Plan: # acute encephalopathy - likely etOH VS HE; had some improvement per prev MD - continue PO lactulose and xifaxan per GI recs, again revwd with him (with friends in room with his permission) importance of taking meds to help, he still refused -long discussion by phone with his sister/med proxy Ghada re status update, plans to transfer to SNF in next 24-48 hours likely -GI signed off # acute etOH w/d - stable off CIWA # acute hepatitis - suspect this is d/t etOH; unable to image adequately - Jaimedrosmin's DF = 38 - currently on steroids, taper per prev GI recs ( decrease by 5 mg every 7 days, on day #3 with current dose) - pattern slightly abnormal for etOH hepatitis with elevated alk phos - surgery has seen and did not recommend surgical intervention for cholelithiasis - GI assistance appreciated # diffuse weakness - suspect related to above -PT/OT evals refused by patient prev but today agrees bc of desire to leave hospital # gastritis/melena s/p EGD - protonix PO bid #anemia- stable Dispo- to [facility], CM assistance appreciated Sister Ghada is decision maker, discussed poor prognosis if drinks again, discussed adv directives in general, she will discuss with rest of family also NO PCP VTE- coagulopathy, meds contraindicated, encourage ambulation, refuses SCDs/TEDs Subjective: Refusing to take medication gain today. Friends in room, agreed to take prednisone and thiamine only. Says no CP/SOB/abd pain. Wants to 'get out of here.' Objective: Vital Signs Temp Pulse Resp BP Pulse Ox 97.6 F 73 15 102/66 90 L 10/04/17 07:20 10/04/17 07:20 10/04/17 07:20 10/04/17 07:20 10/04/17 07:20 Laboratory Results 10/03/17 04:08 10/04/17 02:39 10/02/17 10/03/17 10/04/17 11:59 11:59 11:59 Intake Total 200 1300 Output Total 525 300 Balance -325 1000 PT 18.3 SEC (12.0-15.0) H 09/30/17 07:59 INR 1.50 (0.83-1.16) H 09/30/17 07:59 - Time Spent With Patient Time Spent with Patient: greater than 35 minutes Time Spent with Patient: Greater than 35 minutes spent on this patients care, greater than 50% of time spent counseling, educating, and coordinating care regarding the above mentioned plan. - Physical Exam Constitutional: chronically ill appearing, unkempt Eyes: icteric sclera Ears, Nose, Mouth, Throat: moist mucous membranes Cardiovascular: regular rate and rhythym Respiratory: no respiratory distress, no rales or rhonchi, clear to auscultation Gastrointestinal: normoactive bowel sounds, soft, non-tender abdomen, No guarding, No rebound Skin: warm, other (icteric) Psychiatric: poor insight, poor judgement, poor memory ICD10 Worksheet Patient Problems: Problems Problem Status Onset Alcohol withdrawal Acute Cirrhosis of liver Acute Hypokalemia Acute Elevated liver function tests Acute H/O colonoscopy with polypectomy Acute LUQ abdominal pain Acute Opiate withdrawal Chronic
[2017-10-04] MEDS: LACTULOSE 20 GM/30 ML UDCUP PO SCH ×3 (10:08→22:32)
[2017-10-04] MEDS: PANTOPRAZOLE SODIUM 40 MG TAB PO SCH ×2 (10:09→22:34)
[2017-10-04] MEDS: predniSONE 20 MG TAB PO SCH ×2 (10:09→15:53)
[2017-10-04] MEDS: RIFAXIMIN 550 MG TAB PO SCH ×2 (10:09→22:35)
[2017-10-04] MEDS: THIAMINE HCL 100 MG TAB PO SCH ×2 (10:10→15:53)
--- NOTE | 2017-10-04 10:36 | ASMTCMCOM ---
CM Note CM Note Notes: Spoke with RN; pt medically stable & ready for dc. Alerted Clementine, at [facility]; still waiting on insurance auth; therapy updates & recent progress notes faxed. CM will continue to follow. Date Signed: 10/04/2017 10:35 AM Electronically Signed By:Deana Conner RN
--- NOTE | 2017-10-04 15:34 | ASMTCMCOM ---
CM Note CM Note Notes: Spoke with Clementine again; informed she is receiving CM's faxes, but therapy notes are not current. This CM faxing "CM Therapy Evals (All) report; checked report & confirmed recent therapy notes are not on report, but are available under Patient Care tab. Discussed with PT; submitted ticket to Help Desk to address issue. Recent therapy notes also found under CM Agency/Facility Transfer report; Facility Transfer report faxed to [facility]; confirmed received by Clementine; Clementine to submit to pt's insurance company to obtain SNF authorization. RN updated. CM will follow. Date Signed: 10/04/2017 03:33 PM Electronically Signed By:Deana Conner RN
--- NOTE | 2017-10-04 16:30 | ASMTCMCOM ---
CM Note CM Note Notes: Spoke with pt's sister Ghada; re-emailed requested letter & placed letter back in pt's chart. Ghada to alert this CM if she does not receive email. Ghada provided with pt updates. CM will continue to follow. Date Signed: 10/04/2017 04:29 PM Electronically Signed By:Deana Conner RN
[2017-10-05 04:23] VITALS: RESP 17
[2017-10-05 07:33] LABS: INR 1.13 (0.83-1.16); PROTIME(PATIENT) 14.7 SEC (12.0-15.0)
[2017-10-05 07:41] VITALS: O2SAT 91
[2017-10-05] MEDS: RIFAXIMIN 550 MG TAB PO SCH (08:17)
[2017-10-05] MEDS: LACTULOSE 20 GM/30 ML UDCUP PO SCH (08:17)
[2017-10-05] MEDS: PANTOPRAZOLE SODIUM 40 MG TAB PO SCH (08:18)
[2017-10-05] MEDS: predniSONE 20 MG TAB PO SCH (08:18)
[2017-10-05] MEDS: THIAMINE HCL 100 MG TAB PO SCH (08:18)
--- NOTE | 2017-10-05 09:17 | HOSPPROG ---
Hospitalist Progress Note Assessment/Plan: # acute encephalopathy - likely etOH VS HE -continue PO lactulose and xifaxan per GI recs # acute etOH w/d - stable, off CIWA # acute hepatitis - suspect this is d/t etOH; unable to image adequately - DF = 38 -> 27, currently on steroids, taper per prev GI recs (decrease by 5 mg every 7 days, on day #4/7 with current dose) - pattern slightly abnormal for etOH hepatitis with elevated alk phos, u/s and CT neg for ductal dilatation (MRCP unhelpful 2/2 motion artifact) - discussed with GI today, they do not think this is a cholecystitis and without e/o ductal dilatation, d/c is ok with close outpt f/u - surgery has seen and did not recommend surgical intervention for cholelithiasis - GI assistance appreciated # diffuse weakness - suspect related to above -PT/OT evals # gastritis/melena s/p EGD /- non-bleeding erosive gastropathy - protonix PO bid #anemia- stable Dispo- to [facility] today, CM assistance appreciated Sister Ghada is decision maker, discussed poor prognosis if drinks again, discussed adv directives in general, she will discuss with rest of family also NO PCP VTE- coagulopathy, meds contraindicated, encourage ambulation, refuses SCDs/TEDs Objective: Vital Signs Temp Pulse Resp BP Pulse Ox 36.2 C 88 17 130/81 H 91 L 10/05/17 07:27 10/05/17 07:27 10/05/17 07:27 10/05/17 07:27 10/05/17 07:27 Laboratory Results 10/05/17 07:00 10/04/17 02:39 10/04/17 10/05/17 10/06/17 05:59 05:59 05:59 Intake Total 1300 1100 Output Total 300 100 Balance 1000 1000 PT 14.7 SEC (12.0-15.0) 10/05/17 07:00 INR 1.13 (0.83-1.16) 10/05/17 07:00 ICD10 Worksheet Patient Problems: Problems Problem Status Onset Alcohol withdrawal Acute Cirrhosis of liver Acute Hypokalemia Acute Elevated liver function tests Acute H/O colonoscopy with polypectomy Acute LUQ abdominal pain Acute Opiate withdrawal Chronic
--- NOTE | 2017-10-05 10:41 | PDIAF ---
- Diagnosis Diagnosis: alcoholic hepatitis Code Status: Full Code - Medication Management Discharge Medications: Medications to Continue on Transfer Pantoprazole Sodium [Protonix 40mg (*)] 40 mg PO BID #60 tab 10/05/17 [Last Taken Unknown] Rifaximin [Xifaxan] 550 mg PO BID #60 tab 10/05/17 [Last Taken Unknown] Thiamine HCl [Vitamin B-1] 100 mg PO DAILY #30 tab 10/05/17 [Last Taken Unknown] predniSONE 40 mg PO DAILY #60 tablet 10/05/17 [Last Taken Unknown] Discharge Medications: Refer to the Discharge Home Medication list for PRN reason. PICC Care - Routine: N/A - Orders Services needed: Registered Nurse, Physical Therapy, Occupational Therapy Isolation Type: None Diet Recommendation: low fat Diet Texture: Dysphagia 3 - Advanced - Moist, Bite-Size, Thin Liquids, Meds Whole w/Liquids, Meds Whole in Puree - Labs/Radiology CMP Date: 10/07/17 (results to Dr. Gonzales at [facility]) - Follow Up Care Current Providers and Referrals: Edwin Gonzales MD [Medical Doctor] - 3-5 days (NEEDS close f/u in 3-5 days) NONE *PRIMARY CARE P,. [Primary Care Provider] - As per Instructions
--- NOTE | 2017-10-05 10:43 | PDIAF ---
- Diagnosis Diagnosis: alcoholic hepatitis Code Status: Full Code - Medication Management Discharge Medications: Medications to Continue on Transfer Lactulose [Kristalose] 20 gm PO TID #90 packet 10/05/17 [Last Taken Unknown] Pantoprazole Sodium [Protonix 40mg (*)] 40 mg PO BID #60 tab 10/05/17 [Last Taken Unknown] Rifaximin [Xifaxan] 550 mg PO BID #60 tab 10/05/17 [Last Taken Unknown] Thiamine HCl [Vitamin B-1] 100 mg PO DAILY #30 tab 10/05/17 [Last Taken Unknown] predniSONE 40 mg PO DAILY #60 tablet 10/05/17 [Last Taken Unknown] Discharge Medications: Refer to the Discharge Home Medication list for PRN reason. PICC Care - Routine: N/A - Orders Services needed: Registered Nurse, Physical Therapy, Occupational Therapy Isolation Type: None Diet Recommendation: low fat Diet Texture: Dysphagia 3 - Advanced - Moist, Bite-Size, Thin Liquids, Meds Whole w/Liquids, Meds Whole in Puree - Labs/Radiology CMP Date: 10/07/17 (results to Dr. Gonzales at [facility]) - Follow Up Care Current Providers and Referrals: Edwin Gonzales MD [Medical Doctor] - 3-5 days (NEEDS close f/u in 3-5 days) NONE *PRIMARY CARE P,. [Primary Care Provider] - As per Instructions
--- NOTE | 2017-10-05 10:58 | ASMTCMCOM ---
CM Note CM Note Notes: [employer] approved pt so he will DC to [facility] today. Pickup by Florentin Cooney set for 1:00. Final orders faxed. Date Signed: 10/05/2017 10:58 AM Electronically Signed By:Gabrielle Soriano LCSW
[2017-10-05 11:21] VITALS: BP 117/78; PULSE 95; TEMP 98
--- NOTE | 2017-10-05 11:54 | GDS ---
[f rep st] DISCHARGE SUMMARY DISCHARGE DIAGNOSES: 1. Acute encephalopathy, likely hepatic encephalopathy discharging on lactulose and Xifaxan. 2. Acute alcohol withdrawal, resolved. 3. Acute alcohol-induced hepatitis with a discriminant function score of 38, discharging on prednisone. 4. Elevated liver function tests secondary to above. 5. Weakness requiring fdc facility for rehab. 6. Gastritis with history of melenic stools, discharging on twice daily proton pump inhibitor. 7. Anemia, stable. CONSULTANTS: 1. Dr. Mary Roblero, Gastroenterology. 2. Dr. Edwin Anand, General Surgery. PROCEDURES: Upper endoscopy September 25, 2017, showed nonbleeding erosive gastropathy. Biopsies negative for H pylori and showed chronic gastritis with acute inflammation. HISTORY: For details please see the history and physical dated September 19, 2017. In brief, the patient is a 67-year-old male with a history of alcohol abuse and alcohol-related liver disease, who presented to the emergency department in acute alcohol withdrawal and evidence of alcoholic hepatitis. He was admitted to the hospital for further management. HOSPITAL COURSE: The patient was admitted to the med/surg unit. He required scheduled Librium and p.r.n. Ativan for alcohol withdrawal, which resolved. His elevated LFTs including severe hyperbilirubinemia, transaminitis and elevated alkaline phosphatase were all thought to be secondary to alcohol- induced hepatitis and steatohepatitis. He had a discriminant function score of 38 and was started on high-dose prednisone. He underwent ultrasound as well as CT of his abdomen which did not reveal any ductal dilatation. MRCP was attempted, but this was inconclusive due to motion artifact. Surgery consult was obtained for consideration of need for surgical intervention. HIDA scan was not recommended by surgery due to his hyperbilirubinemia. Ultimately, it is felt that his elevated LFTs are secondary to severe alcohol-induced hepatitis rather than biliary etiology. On the day of discharge, he is pain free, tolerating a full diet with no nausea , vomiting, pain or fevers. He does not wish to undergo any further studies at this time. He strongly wants to leave the hospital. He underwent EGD as above for gastritis and history of melena. This showed nonbleeding erosive gastropathy. He has been treated with twice daily Protonix. This will be continued at discharge. In addition, he was noted to be acutely encephalopathic and was started on lactulose and Xifaxan for presumed hepatic encephalopathy. His ammonia level peaked at 43. His mentation is back to baseline at the time of discharge. He will be discharged with ongoing lactulose and Xifaxan. He will also require a long-term taper prednisone. Gastroenterology is recommended we decrease the dose by 5 mg every 7 days. He has 3 more days left of 40 mg dose and will drop to 35 mg daily for 7 days, then 30 mg daily for 7 days, etcetera, until completion. I have discussed with the patient the importance of maintaining sobriety and cessation of alcohol as his life depends on it. He understands this. In addition, he understands he needs very close outpatient followup with GI of the [facility] and he is referred to Dr. Jose Klein. He should be seen in 3-5 days. I examined the patient on the day of discharge and he has no abdominal tenderness. He just ate a full breakfast. He is having normal bowel movements. His blood pressure is 133/77, heart rate 63, respiratory rate 17, he is 92% on room air. He was evaluated by our therapy services and fdc facility. Rehab is recommended due to his weakness and gait instability. DISPOSITION: Patient is discharged to fdc facility rehab in stable condition. FOLLOWUP: 1. Dr. Jose Klein, GI of [facility] in 3-5 days. 2. Primary care. DISCHARGE MEDICATIONS: Please see [facility] for completed outpatient medication list. New medications on discharge include: 1. Protonix 40 mg p.o. twice daily, #60, no refills. 2. Prednisone 40 mg p.o. daily for 3 more days, then 35 mg p.o. daily for 7 days, then 30 mg p.o. daily for 7 days, then 25 mg p.o. daily for 7 days, then 20 mg p.o. daily for 7 days, then 15 mg p.o. daily for 7 days, then 10 mg p.o. daily for 7 days, then 5 mg p.o. daily for 7 days, #60 no refills. 3. Rifaximin 550 mg p.o. twice daily, #60, no refills. 4. Thiamine 100 mg p.o. daily, #30, no refills. 5. Lactulose 20 mg p.o. 3 times daily, #90, no refills. 6. He should discontinue ibuprofen due to bleeding risk. /[id number]/MODL MTDD
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
== END 2017-10-05 13:31 | DRG 432 ==
LOC: EDUNIT# → F2N 04:37 → OBSVTOIN 09-20 13:55 → F2N 09-20 17:19 → F1N 09-23 18:03
PROVIDERS: ADMIT Family Medicine; ATTEND Hospitalist
PROC: 0DB78ZX Excision of Stomach, Pylorus, Via Natural or Artificial Opening Endoscopic, Diagnostic (ICD-10-PCS; principal; 2017-09-25 09:15)
DX: K70.10 Alcoholic hepatitis without ascites (principal); K70.40 Alcoholic hepatic failure without coma; K70.30 Alcoholic cirrhosis of liver without ascites; K29.71 Gastritis, unspecified, with bleeding; F10.239 Alcohol dependence with withdrawal, unspecified; F17.200 Nicotine dependence, unspecified, uncomplicated; L89.529 Pressure ulcer of left ankle, unspecified stage; E87.6 Hypokalemia; D64.9 Anemia, unspecified; K44.9 Diaphragmatic hernia without obstruction or gangrene
CPT/HCPCS: 92507-GN; 92523-GN; 92526-GN; 92610-GN; 96374; 97112-GP; 97116-GP; 97162-GP; 97166-GO; 97530-GO; 97530-GP; 97535-GO; G0378; G0480; G0515-GO; G8987-GO-CM; G8988-GO-CK; J0610; J0696; J1335; J1650; J2060; J2405; J2704; J2920; J3411; J3475; J3480; J7512; Q9967

== ENCOUNTER → 2017-12-07 | Outpatient (CLI) | payer OTHER | LOC: FIMAGING 09:17 | PROVIDERS: ATTEND Internal Medicine | DX: R16.0 Hepatomegaly, not elsewhere classified (principal); K76.0 Fatty (change of) liver, not elsewhere classified; K80.20 Calculus of gallbladder without cholecystitis without obstruction ==

== ENCOUNTER 2018-04-27 22:49 | Emergency (ER) | payer OTHER ==
[2018-04-27 22:56] VITALS: BP 168/100
--- NOTE | 2018-04-27 23:19 | EDPHY ---
H & P Stated Complaint: possible spider bite right great toe Time Seen by Provider: 04/27/18 22:57 HPI/ROS: Chief Complaint: Right great toe infection HPI: 67-year-old male presenting with worsening pain and discharge from his toenail of his right great toe. Patient states has been worsening for the last couple days. He does have his toenails loose. He does have a history of peripheral neuropathy. Has not seen a child welfare assistant. Is not a diabetic. Is not significantly painful. Has noticed quite a bit of pus from the site. No injuries. He did trim his toenails after his toe began getting loose. No redness or streaking of his foot. Does not have a history of similar symptoms in the past. ROS: 10 systems were reviewed and were negative except those elements noted in the HPI. Social History: No smoking, no alcohol Family History: non-contributory Physical Exam: General: Awake, alert, no acute distress Right foot: Patient has purulent discharge with skin breakdown over his distal great toe with a loosening nail. There is minimal erythema. It does not cross the interphalangeal joint. There is no erythema or tenderness proximal to the distal phalanx. There is decreased sensation. Skin: No rash - Personal History Current Tetanus/Diphtheria Vaccine: Yes Current Tetanus Diphtheria and Acellular Pertussis (TDAP): Yes - Medical/Surgical History Hx Asthma: No Hx Chronic Respiratory Disease: No Hx Diabetes: No Hx Cardiac Disease: No Hx Renal Disease: No Hx Cirrhosis: No Hx Alcoholism: Yes Hx HIV/AIDS: No Hx Splenectomy or Spleen Trauma: No Other PMH: HTN, alcohol withdrawal, poylyps removed, orthopedics fractures and surgeries, kidney stone removal,tonsils - Social History Smoking Status: Current every day smoker Constitutional: Initial Vital Signs Temperature (C) 36.6 C 04/27/18 22:53 Heart Rate 57 L 04/27/18 22:53 Respiratory Rate 18 04/27/18 22:53 Blood Pressure 168/100 H 04/27/18 22:53 O2 Sat (%) 94 04/27/18 22:53 O2 Delivery Mode Room Air Allergies/Adverse Reactions: Penicillins Allergy (Intermediate, Verified 09/18/17 13:47) Hives Home Medications: Medication Instructions Recorded Lactulose [Kristalose] 20 gm PO TID #90 packet 10/05/17 Pantoprazole Sodium [Protonix 40mg 40 mg PO BID #60 tab 10/05/17 (*)] Rifaximin [Xifaxan] 550 mg PO BID #60 tab 10/05/17 Thiamine HCl [Vitamin B-1] 100 mg PO DAILY #30 tab 10/05/17 predniSONE 40 mg PO DAILY #60 tablet 10/05/17 Clindamycin HCl [Clindamycin] 300 mg PO TID #30 cap 04/27/18 Medical Decision Making ED Course/Re-evaluation: Patient has a cellulitis which has purulent his right great toe. Early ulceration formation. No findings suggestive of a deeper tissue infection or osteomyelitis. Plan will be to start him on clindamycin as he is penicillin allergic. He will need to follow up with Podiatry tomorrow. I have given him the contact information for the on-call child welfare assistant. Departure - Departure Disposition: Home, Routine, Self-Care Clinical Impression: Cellulitis Condition: Good Instructions: Cellulitis (ED) Additional Instructions: Follow up with Dr. Borrero, podiatry tomorrow. Return to the emergency department for increasing pain, worsening redness, fevers, or any other concerns. Referrals: Bucky Cotto DO [Primary Care Provider] - As per Instructions Kota Borrero DPM [Doctor of Podiatric Medicine] - As per Instructions Prescriptions: Clindamycin HCl [Clindamycin] 300 mg PO TID #30 cap
[2018-04-27] MEDS ORDERED: CLINDAMYCIN 150MG PREPACK#6 BTL TAKEHOME ONE (23:21)
== END 2018-04-27 23:42 | disposition home or self-care (01) ==
DX: L03.031 Cellulitis of right toe (principal); Z88.0 Allergy status to penicillin
CPT/HCPCS: 99283; L4386

== ENCOUNTER 2018-10-27 19:30 | Emergency (ER) | payer OTHER ==
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
[2018-10-27] MEDS ORDERED: HYDROCOD/APAP 5/325 PREPACK#6 BTL TAKEHOME ONE (21:02)
[2018-10-27 21:10] VITALS: BP 138/93
== END 2018-10-27 21:18 | disposition home or self-care (01) ==
DX: S89.91XA Unspecified injury of right lower leg, initial encounter (principal); W20.8XXA Other cause of strike by thrown, projected or falling object, initial encounter; I10 Essential (primary) hypertension; F17.200 Nicotine dependence, unspecified, uncomplicated; Z87.442 Personal history of urinary calculi; Z88.0 Allergy status to penicillin